=== PATIENT | female | born 1965 | race Caucasian/White ===

== ENCOUNTER 2020-01-20 11:07 | Outpatient (CLI) | payer OTHER, MEDICARE, SELFPAY ==
--- NOTE | ~2020-01-20 | CT_ITS ---
EXAMINATION: CT lung screening DATE: 01/20/2020 11:26 INDICATION: Personal history of nicotine dependence, current smoker with 38 pack year history TECHNIQUE: Computed tomography (CT) of the chest was performed without intravenous contrast. The dose -length product (DLP) was 213.69 mGy-cm. Automated exposure control and iterative reconstruction tech [employer] were employed. COMPARISON: 12/12/2018 FINDINGS: Stable bilateral pulmonary nodules are present. The largest measures 4 mm in the left upper lobe on image 60. No new pulmonary nodule is identified. Again noted is mosaic attenuation in the jacoby ng bases, likely small airways disease. The lungs are free of focal airspace opacities. There is no p leural effusion or pneumothorax. No pathologically enlarged thoracic lymph nodes are identified. The heart size is normal. Calcified coronary artery atherosclerosis is noted. There is mild thoracic spon dylosis. IMPRESSION: 1. Lung-RADS category 2: Benign appearance or behavior. Continue annual screening with noncontrast lo w-dose chest CT in 12 months. Reviewed, dictated and finalized at location A. IMPRESSION: 1. Lung-RADS category 2: Benign appearance or behavior. Continue annual screeni ng with noncontrast low-dose chest CT in 12 months.
== END 2020-01-20 11:08 | disposition home or self-care (01) ==
LOC: ANHIMG 11:16
PROVIDERS: PCP Family Medicine; Visit Provider Internal Medicine Critical Care Medicine
DX: Z12.2 Encounter for screening for malignant neoplasm of respiratory organs (principal); Z87.891 Personal history of nicotine dependence
CPT/HCPCS: G0297

== ENCOUNTER 2020-03-25 16:17 | Outpatient (CLI) | payer OTHER, MEDICARE, SELFPAY ==
--- NOTE | ~2020-03-25 | XR_ITS ---
EXAMINATION: XR chest 2V DATE: 03/25/2020 16:45 INDICATION: Pleurodynia and shortness of breath TECHNIQUE: PA and lateral views of the chest are obtained. COMPARISON: 06/21/2017 FINDINGS: The lungs are free of acute opacities. There is no pleural effusion or pneumothorax. The ca rdiomediastinal silhouette is normal. There is mild thoracic spondylosis. IMPRESSION: 1. No acute cardiopulmonary abnormality. Reviewed, dictated and finalized at location A.
== END 2020-03-25 16:18 | disposition home or self-care (01) ==
PROVIDERS: PCP Family Medicine; Visit Provider Nurse Practitioner Family
DX: R05 Cough (principal); R07.81 Pleurodynia
CPT/HCPCS: 71046

== ENCOUNTER 2020-07-09 07:41 | Outpatient (CLI) | payer OTHER, MEDICARE, SELFPAY ==
--- NOTE | ~2020-07-09 | MR_ITS ---
EXAMINATION: MR lumbar spine wo/w con DATE: 07/09/2020 08:47 INDICATION: Lumbago. Lumbar radiculopathy with recurrent low back and right leg pain and numbness. TECHNIQUE: Magnetic resonance imaging (MRI) of the lumbar spine was performed without and with 19 mL Multihance intravenous contrast. Sequences included sagittal T2-weighted FSE, sagittal T2-weighted FS FSE, sagittal T1-weighted FSE, and axial T2-weighted FSE. COMPARISON: MRI dated 12/29/2014 and radiographs dated 12/08/2014 FINDINGS: Alignment is normal. Anterior fusion at L4-L5 and posterior fusion with bilateral vertical harsh and pe dicle screw fixation from L3 through L5. Associated partial L3-L4 laminectomies. Unfused vertebral kary dy heights are normal. Normal marrow signal. Moderate disc height loss at L3-L4. Mild disc height lo ss with annular fissures and disc extrusions at L2-L3 and L5-S1. The conus medullaris terminates at L 1-L2. There is normal signal in the caudal spinal cord. No abnormally enhancing lesions identified. P ostoperative scarring in the soft tissues posterior to the mid to lower lumbar spine. Paravertebral s oft tissues are otherwise unremarkable. The following disc levels are specifically discussed: T12-L1: The disc does not extend beyond the endplate margin. There is old bilateral facet joint osteo arthritis. There is no neural foraminal stenosis. There is no central canal stenosis. L1-L2: The disc is minimally bulging. There is mild bilateral facet joint osteoarthritis. There is mi nimal left neural foraminal stenosis. There is no central canal stenosis. L2-L3: Disc is mildly bulging with superimposed annular fissure and broad-based disc extrusion which extends from foraminal zone to foraminal zone and measuring 11 mm craniocaudal and 5 mm AP at the mid sagittal plane. There is are bilateral facet joint osteoarthritis. There is hypertrophy of the ligam entum flavum. There is moderate bilateral neural foraminal stenosis. There is severe central canal s tenosis with no appreciable CSF signal surrounding the centrally punched nerve roots on the axial farzaneh ge. L3-L4: Disc is minimally bulging. The facet joints are fused. Partial laminectomy with posterior deco mpression. There is mild bilateral, left greater than right, neural foraminal stenosis. There is no c entral canal stenosis. L4-L5: The disc space is fused. The facet joints and lamina are fused. Likely prior partial L4 geovanni ctomy with resection of the ligamentum flavum. There is no greater than mild bilateral neural foramin al stenosis with determination limited by spatial distortion resulting from the pedicle screws. There is no central canal stenosis. L5-S1: Annular fissure and smaller broad-based posterior disc extrusion extending from foraminal zone to foraminal zone and measuring approximately 3 x 3 mm in craniocaudal and AP dimensions on the mid sagittal plane. There is severe bilateral facet joint osteoarthritis. There is moderate bilateral lashell ral foraminal stenosis. There is no central canal stenosis. IMPRESSION: 1. Anterior L4-L5 and instrumented posterior L3 L5 spinal fusion. 2. Interval progression of moderate to severe spondylosis in the mid to lower lumbar spine most notab le for a chronic annular fissure and enlarging disc extrusion at L2-L3 resulting in severe central ca nal stenosis. Reviewed, dictated and finalized at location A. EON'S ASSISTANT IMPRESSION: 1. Anterior L4-L5 and instrumented posterior L3 L5 spinal fusion. 2. Interval progression of moderate to severe spondylosis in the mid to lower l umbar spine most notable for a chronic annular fissure and enlarging disc extru nicola at L2-L3 resulting in severe central canal stenosis.
[2020-07-09 08:17] LABS: Estimated Glomerular Filt Rate > 60
== END 2020-07-09 07:42 ==
PROVIDERS: PCP Physician Assistant; Visit Provider Nurse Practitioner Family
DX: M54.16 Radiculopathy, lumbar region (principal); M43.16 Spondylolisthesis, lumbar region; Z98.1 Arthrodesis status
CPT/HCPCS: 72158; A9577

== ENCOUNTER 2020-08-24 11:03 | Outpatient (CLI) | payer OTHER, MEDICARE, SELFPAY | END 2020-08-24 11:04 | disposition home or self-care (01) | LOC: ANHCOVIDVC 11:03 | PROVIDERS: PCP Physician Assistant | DX: Z23 Encounter for immunization (principal) | CPT/HCPCS: 0001A; 91300 ==

== ENCOUNTER 2020-08-25 12:11 | Emergency (ER) | payer OTHER, MEDICARE, SELFPAY ==
--- NOTE | ~2020-08-25 | XR_ITS ---
EXAMINATION: XR tibia fibula RT 2V EXAM DATE: 08/25/2020 12:42 INDICATION: Right leg dog bite mid shaft. TECHNIQUE: Right tibia/fibula frontal and lateral projections obtained and reviewed. There is no genet or study for comparison. FINDINGS: Right tibial and fibular shafts unremarkable. There are no acute fractures or dislocations identified. There is no subcutaneous gas. There is a bandage obscuring soft tissues. There are no other radiopaque foreign bodies identified. IMPRESSION: 1. XR tibia fibula RT 2V exam without acute osseous findings. Reviewed, dictated and finalized at location B. ACCOUNTING ASSISTANT
[2020-08-25 12:17] VITALS: BP 137/67; PULSE 101; RESP 20; TEMP 35.9; O2SAT 98
[2020-08-25 12:52] VITALS: BP 126/53; PULSE 86; RESP 18; O2SAT 96
--- NOTE | 2020-08-25 13:15 | ED.ANIMALBIT ---
HPI - Animal Bite General Chief Complaint: Animal Bite Stated Complaint: dog bite Time Seen by Provider: 08/25/20 12:39 Source: patient Mode of arrival: ambulatory Limitations: no limitations History of Present Illness HPI narrative: Patient is a 55-year-old female complaining of a dog bite on her right leg. Patient states it was her neighbor's dog and shots are up-to-date. Patient denies any other bites or injuries. Related Data Home Medications Medication Instructions Recorded Confirmed aspirin 81 mg tablet,delayed 81 mg PO DAILY 05/29/19 06/17/20 release cetirizine 10 mg tablet 10 mg PO DAILY 05/29/19 06/17/20 simvastatin 20 mg tablet 20 mg PO DAILY 05/29/19 06/17/20 calcium carbonate 600 mg calcium 600 mg PO BID 05/30/19 06/17/20 (1,500 mg) tablet docusate sodium 250 mg capsule 250 mg PO DAILY 05/30/19 06/17/20 sennosides 8.6 mg tablet 8.6 mg PO BID 05/30/19 06/17/20 cholecalciferol (vitamin D3) 100 100 mcg PO DAILY 06/17/20 06/17/20 mcg (4,000 unit) capsule hydrochlorothiazide 12.5 mg tablet 12.5 mg PO DAILY 06/17/20 06/17/20 losartan 50 mg tablet 50 mg PO DAILY 06/17/20 06/17/20 multivitamin 1 tablet PO DAILY 06/17/20 06/17/20 Allergies Allergy/AdvReac Type Severity Reaction Status Date / Time levofloxacin Allergy Unknown Skin Verified 08/25/20 13:00 irritation metronidazole Allergy Unknown Skin Verified 08/25/20 13:00 irritation oxymetazoline Allergy Unknown unk Verified 08/25/20 13:00 Quinolones Allergy Unknown Unknown Verified 08/25/20 13:00 Bumble Bee Allergy Unknown THROAT Uncoded 06/17/20 10:11 SWELLS NFA Allergy Unknown Unknown Uncoded 06/17/20 10:11 Review of Systems Review of Systems: All systems reviewed & are unremarkable except as noted in HPI and below PMFSH Family History Family History Mother Family history of malignant neoplasm of breast in first degree relative Family history of sleep apnea Father Hypertension Asthma Family history of cardiovascular disease Family history of chronic obstructive pulmonary disease Family history of sleep apnea Grandparent Family history of cardiovascular disease Family history of Alzheimer's disease Social History Social History Social History: pt stated stop smoking 1 month ago Smoking packs per day: 0.5 Smoking cigarettes per day: 10.0 Years smoked: 30 Smoking pack-years: 15.00 Smoking status: Current every day smoker Tobacco type: cigarettes Second hand tobacco smoke exposure: No Alcohol intake: current Gender identity (if verbalized by the patient): Female Exam Const: General: no acute distress and alert Orientation/consciousness: patient oriented x3 HENMT: Head: normal to inspection Neck: Neck: normal visual inspection Resp: Effort & Inspection: normal respiratory effort Extrem: Other: 2 puncture wounds on the right calf measuring 2 x 1 cm and 1 x 1 cm, abrasions right calf. Neurovascular is intact. Course Vital Signs Vital signs: Vital Signs Temperature 35.9 C L 08/25/20 12:17 Pulse Rate 101 H 08/25/20 12:17 Respiratory Rate 20 08/25/20 12:17 Blood Pressure 137/67 08/25/20 12:17 Pulse Oximetry 98 08/25/20 12:17 Temperature 35.9 C L 08/25/20 12:17 Pulse Rate 86 08/25/20 12:52 Respiratory Rate 18 08/25/20 12:52 Blood Pressure 126/53 L 08/25/20 12:52 Pulse Oximetry 96 08/25/20 12:52 Discharge Plan Discharge Clinical Impression: Dog bite of calf Qualifiers: Encounter type: initial encounter Laterality: right Qualified Code(s): S81.851A - Open bite, right lower leg, initial encounter Patient Disposition: Home, Self-Care Condition: Stable Instructions: Antibiotic Form, Animal Bite (ED) Prescriptions: New amoxicillin-pot clavulanate [Augmentin] 875-125 mg tablet 1 tablet PO Q12H Qty: 14 RF: 0 No Action f
[2020-08-25] MEDS: TETANUS,DIPHTHERIA,AC PERTUSSIS ADULT (0.5 ML) BOOSTRIX IM (13:38)
[2020-08-25] MEDS: KETOROLAC 30 MG/ML VIAL (*BKC) IM (13:39)
[2020-08-25] MEDS: HYDROcodone/acetaminophen (*CRX) 5-325 MG TABLET 1 TAB PO (13:39)
[2020-08-25 13:51] VITALS: BP 135/81; PULSE 87; RESP 18; O2SAT 95
== END 2020-08-25 14:03 | disposition home or self-care (01) ==
PROVIDERS: Emergency Provider Emergency Medicine; PCP Family Medicine
DX: S81.851A Open bite, right lower leg, initial encounter (principal); Z23 Encounter for immunization; Z79.82 Long term (current) use of aspirin; Z87.891 Personal history of nicotine dependence; W54.0XXA Bitten by dog, initial encounter
CPT/HCPCS: 73590; 90471; 90715; 96372; 99283; A9270; J1885

== ENCOUNTER 2020-09-01 15:24 | Emergency (ER) | payer OTHER, MEDICARE, SELFPAY ==
[2020-09-01 15:34] VITALS: BP 142/66; PULSE 82; RESP 18; TEMP 36.2; O2SAT 98
[2020-09-01 17:45] LABS: Basophils Percent Auto 0.4 % (0.2-1.2); Eosinophils Absolute Auto 0.1 K/mm3 (0-0.3); Eosinophils Percent Auto 1.3 % (0-4.4); Hematocrit 33.8 % (37.0-47.0); Hemoglobin 10.3 g/dL (12.0-15.0); Immature Granulocyte Absolute 0.06 K/mm3 (0.00-0.031); Immature Granulocyte Percent A 0.6 % (0-0.5); Lymphocytes Absolute Auto 2.51 K/mm3 (0.9-3.2); Lymphocytes Percent Auto 25.7 % (18.3-44.2); Mean Corpuscular HGB Conc 30.5 g/dl (32-36); Mean Corpuscular Hemoglobin 25.5 pg (26-34); Mean Corpuscular Volume 83.7 fl (80-100); Mean Platelet Volume 10.4 fl (7.4-10.4); Monocytes Absolute Auto 0.6 K/mm3 (0.1-0.6); Monocytes Percent Auto 5.7 % (2.6-8.5); Neutrophils Absolute Auto 6.5 K/mm3 (1.3-6.7); Neutrophils Percent Auto 66.3 % (45.5-73.1); Platelet Count Result 264 k/mm3 (150-375); Red Blood Count 4.04 M/mm3 (4.2-5.4); Red Cell Distribution Width 15.2 % (11.5-14.5); White Blood Count 9.8 K/mm3 (4.5-10.0)
[2020-09-01] MEDS: CLINDAMYCIN 600 MG/NS 50 ML 600 MG/50 ML PIGGYBACK 100 MG IVPB (17:49)
[2020-09-01] MEDS: KETOROLAC 15 MG/ML VIAL (*BKC) IV PUSH (17:49)
--- NOTE | 2020-09-01 19:18 | ED.ANIMALBIT ---
HPI - Animal Bite General Chief Complaint: Animal Bite Stated Complaint: infected dog bite Time Seen by Provider: 09/01/20 16:53 Source: patient Mode of arrival: ambulatory Limitations: no limitations History of Present Illness HPI narrative: Patient presents for reevaluation of dog bite to her right calf that she sustained on August 25. Patient was started on Augmentin at that time. Patient followed up with her primary care on August 28 and had some erythema to the area so she was put on Bactrim and prescribed Bactroban. Patient states that her redness and swelling has increased so her primary care told her to come to the emergency department. Patient has not had fever, chills or vomiting. Patient denies purulent drainage from the wound. Patient feels that the erythema is getting worse. Patient does not have diabetes. Patient denies autoimmune diseases. Related Data Home Medications Medication Instructions Recorded Confirmed aspirin 81 mg tablet,delayed 81 mg PO DAILY 05/29/19 09/01/20 release cetirizine 10 mg tablet 10 mg PO DAILY 05/29/19 09/01/20 simvastatin 20 mg tablet 20 mg PO DAILY 05/29/19 09/01/20 calcium carbonate 600 mg calcium 600 mg PO BID 05/30/19 09/01/20 (1,500 mg) tablet docusate sodium 250 mg capsule 250 mg PO DAILY 05/30/19 09/01/20 sennosides 8.6 mg tablet 8.6 mg PO BID 05/30/19 09/01/20 cholecalciferol (vitamin D3) 100 100 mcg PO DAILY 06/17/20 09/01/20 mcg (4,000 unit) capsule hydrochlorothiazide 12.5 mg tablet 12.5 mg PO DAILY 06/17/20 09/01/20 losartan 50 mg tablet 50 mg PO DAILY 06/17/20 09/01/20 multivitamin 1 tablet PO DAILY 06/17/20 09/01/20 Lactobacillus rhamnosus GG 10 1 cap PO DAILY 08/28/20 08/28/20 billion cell capsule pregabalin 75 mg capsule 75 mg PO BID 08/28/20 09/01/20 Allergies Allergy/AdvReac Type Severity Reaction Status Date / Time levofloxacin Allergy Unknown Skin Verified 09/01/20 16:54 irritation metronidazole Allergy Unknown Skin Verified 09/01/20 16:54 irritation oxymetazoline Allergy Unknown unk Verified 09/01/20 16:54 Quinolones Allergy Unknown Unknown Verified 09/01/20 16:54 Bumble Bee Allergy Unknown THROAT Uncoded 08/28/20 09:15 SWELLS NFA Allergy Unknown Unknown Uncoded 08/28/20 09:15 Review of Systems Review of Systems: Narrative: CONSTITUTIONAL: Denies fever, chills, or sweats. EYES: Denies visual changes, redness, or discharge. ENT: Denies rhinorrhea, congestion, sore throat, or otalgia. CARDIOVASCULAR: Denies chest pain, palpitations, or edema. RESPIRATORY: Denies cough or dyspnea. GASTROINTESTINAL: Denies abdominal pain, nausea, vomiting, or diarrhea. GENITOURINARY: Denies dysuria or hematuria. SKIN: Reports dog bite right calf denies rash or itching. MUSCULOSKELETAL: Denies back pain, joint pain, or myalgia. NEUROLOGIC: Denies headache, numbness, dizziness, or weakness. PSYCHIATRIC: Denies anxiety or depression. [facility] Past Medical History Medical History Acute renal failure Allergies Benign hypertension COPD exacerbation CVA (cerebral vascular accident) Fatigue Hyperlipidemia LDL goal <70 Low back pain with right-sided sciatica Lung disease Papular rash Pustular rash Surgical History Surgical History History of appendectomy History of cholecystectomy History of hernia repair History of spinal fusion History of tubal ligation Family History Family History Mother Family history of malignant neoplasm of breast in first degree relative Family history of sleep apnea Father Hypertension Asthma Family history of cardiovascular disease Family history of chronic obstructive pulmonary disease Family history of sleep apnea Grandparent Family history of cardiovascular disease Family history of Alzheimer's disease Social History Social History (Re
[2020-09-01 19:30] VITALS: BP 139/78; PULSE 79; RESP 18; O2SAT 97
== END 2020-09-01 19:45 | disposition home or self-care (01) ==
PROVIDERS: Physician Assistant; Emergency Provider Emergency Medicine; PCP Physician Assistant
DX: L03.115 Cellulitis of right lower limb (principal); S81.851A Open bite, right lower leg, initial encounter; W54.0XXA Bitten by dog, initial encounter; Z79.82 Long term (current) use of aspirin; I10 Essential (primary) hypertension; J44.9 Chronic obstructive pulmonary disease, unspecified; Z86.73 Personal history of transient ischemic attack (TIA), and cerebral infarction without residual deficits; E78.5 Hyperlipidemia, unspecified; J98.4 Other disorders of lung; Z98.1 Arthrodesis status
CPT/HCPCS: 36415; 80053; 85025; 87040; 96365; 96375; 99284; J1885

== ENCOUNTER 2020-09-04 15:53 | Outpatient (CLI) | payer OTHER, MEDICARE, SELFPAY ==
--- NOTE | ~2020-09-04 | XR_ITS ---
EXAMINATION: XR chest 2V DATE: 09/04/2020 16:32 INDICATION: Dyspnea TECHNIQUE: PA and lateral views of the chest were obtained. COMPARISON: Chest radiograph dated 03/25/2020 FINDINGS: The lungs remain clear with no focal airspace opacities, pulmonary edema, pleural effusion or pneumot horax. The cardiomediastinal silhouette is normal. Cholecystectomy clips in right upper quadrant. Vis ualized bones and soft tissues are unremarkable. IMPRESSION: 1. No acute cardiopulmonary disease. Reviewed, dictated and finalized at location B.
--- NOTE | ~2020-09-04 | US_ITS ---
US venous doppler LE RT DATE: 09/04/2020 16:19 INDICATION: Right leg pain. Dog bite. TECHNIQUE: Real-time imaging and Doppler analysis of the veins of the right lower extremity COMPARISON: None FINDINGS: The greater saphenous vein is patent. There is spontaneous and phasic flow and normal augme ntation and color flow signal and normal compression of the deep veins of the right lower extremity. IMPRESSION: No evidence of deep venous thrombosis of right lower extremity Reviewed, dictated and finalized at Location A. Reviewed, dictated and finalized at location A.
== END 2020-09-04 15:54 | disposition home or self-care (01) ==
PROVIDERS: PCP Physician Assistant; Visit Provider Family Medicine
DX: R06.00 Dyspnea, unspecified (principal); M79.604 Pain in right leg; M79.89 Other specified soft tissue disorders
CPT/HCPCS: 71046; 93971

== ENCOUNTER 2020-09-14 11:06 | Outpatient (CLI) | payer OTHER, MEDICARE, SELFPAY | END 2020-09-14 11:07 | disposition home or self-care (01) | LOC: ANHCOVIDVC 11:06 | PROVIDERS: PCP Physician Assistant | DX: Z23 Encounter for immunization (principal) | CPT/HCPCS: 0002A; 91300 ==

== ENCOUNTER 2020-10-08 13:46 | Outpatient (CLI) | payer OTHER, MEDICARE, SELFPAY ==
--- NOTE | 2020-10-08 13:45 | ECG_ITS ---
Measurements Intervals [place] Rate: 64 P: 45 W[place]: 171 QRS: 58 QRSD: 100 T: 34 QT: 413 QTc: 428 Interpretive Statements SINUS RHYTHM NORMAL ECG Electronically Signed On 10-08-2020 14:09:27 CDT by Les Santos D.O.
[2020-10-08 14:42] LABS: Anion Gap 5 mmol/L (8-16); Blood Urea Nitrogen 10 mg/dL (7-17); Carbon Dioxide 31 mmol/L (22-30); Chloride 102 mmol/L (98-107); Estimated Glomerular Filt Rate 57; Glucose 123 mg/dL (65-105); Potassium 3.8 mmol/L (3.4-5.0); Sodium 138 mmol/L (137-145)
== END 2020-10-08 13:47 | disposition home or self-care (01) ==
LOC: ANHSURGERY 13:52
PROVIDERS: Anesthesiology; PCP Physician Assistant; Visit Provider Surgery
DX: Z01.812 Encounter for preprocedural laboratory examination (principal); I10 Essential (primary) hypertension; Z79.899 Other long term (current) drug therapy
CPT/HCPCS: 36415; 80048; 93005

== ENCOUNTER → 2020-10-10 06:58 | Outpatient (CLI) | payer OTHER, MEDICARE, SELFPAY ==
[2020-10-10 20:54] LABS: SARS-CoV-2 RNA PCR Negative
== END ==
PROVIDERS: PCP Physician Assistant; Visit Provider Surgery
DX: Z01.812 Encounter for preprocedural laboratory examination (principal); Z20.822 Contact with and (suspected) exposure to COVID-19
CPT/HCPCS: C9803; U0003; U0005

== ENCOUNTER 2020-10-14 00:54 | Day surgery (SDC) | payer OTHER, MEDICARE, SELFPAY ==
[2020-10-06 14:37] VITALS: BMI 39.0
--- NOTE | 2020-10-08 11:02 | PC.NURSE ---
No health history or medication changes since time of previous interview. New pre-op instructions discussed with pt. Pt denies any questions at this time.
--- NOTE | 2020-10-11 12:17 | P.PNWOUND_ITS ---
Wound Care Note Date/Time: 10/11/20 12:17 History: Bitten by a dog on right lower leg. Two wounds not healing. Patient is a smoker. Wound history: Initially seen by wound nurses 09/24/2020. Mupirocin and Santyl were tried as well as Tubigauze. No improvement has been noted. Wound approximation: No Wound width: 2 cm Wound length: 1 cm Wound depth: 1.1 cm Drainage: serosanguineous Surrounding tissue appearance: edematous Tunnelin.9 cm between the 2 open wounds Percentage granulation tissue: 0, nearly all is slough Treatment/Procedures: mupirocin and santyl dressing changes to continue. Tubigrip for edema control. Plan to take patient to the OR for debridement of the overlying tissue to expose the underlying tunneling and debride the slough. Dressings: As above. Assessment and Plan Assessment and plan (1) Dog bite: Code(s): W54.0XXA - Bitten by dog, initial encounter Status: Chronic Assessment and Plan: Two open wounds right lower leg that are not healing and have obvious tunneling between the 2. Both are filled with and really no granulation tissue. They are very tender. We will need to go to the operating room for excisional debridement of the skin and subcutaneous of the overlying tunnel. Some of the slough will be debrided as well. I explained this to the patient and her were answered. They agreed to go ahead . This will be an outpatient procedure. (2) Pain and swelling of right lower extremity: Code(s): M79.604 - Pain in right leg; M79.89 - Other specified soft tissue disorders Status: Chronic Assessment and Plan: associated with dog bite. Elevate and continue to use tubigrip over dressing. (3) Tobacco abuse: Code(s): Z72.0 - Tobacco use Status: Chronic Assessment and Plan: Explained to the patient that her wound healing. Advised her to quit smoking. (4) COPD with asthma: Code(s): J44.9 - Chronic obstructive pulmonary disease, unspecified Status: Chronic (5) GUILLERMINA on CPAP: Code(s): G47.33 - Obstructive sleep apnea (adult) (pediatric); Z99.89 - Dependence on other enabling machines and devices Status: Acute (6) Primary hypertension: Code(s): I10 - Essential (primary) hypertension Status: Chronic Review of Systems Review of Systems: All systems reviewed & are unremarkable except as noted in HPI and below Constitutional: Constitutional: Denies headache(s) ENT: Denies headache(s) Cardiovascular: Cardiovascular: Denies chest pain and Denies dyspnea Respiratory: Respiratory: Denies cough and Denies dyspnea Gastrointestinal: Gastrointestinal: Denies bloating, Denies constipation and Denies nausea Neurologic: Denies confusion and Denies headache(s) Psychiatric: Psychiatric: Denies confusion Exam 2 Const: General: comfortable, no acute distress, alert and awake Skin: Lesions: no lesions Rashes: no rashes Wounds: wounds noted ( See extremity exam below) Extrem: General: no calf tenderness, no cyanosis, edema and pedal edema Right lower extremity: lower leg Details: penetrating wound ( to circular dog bite wounds with slough fill and tunneling) Psych: Affect: normal affect Thought process: Normal thought process present Insight: Good insight present (Psych)
--- NOTE | 2020-10-13 14:49 | WPDANESEPPF ---
Anes - Initial Pre Proc Eval Procedure: Operation Date: 10/14/20 13:00 Proposed Procedures p Excisional Debridement Skin And Subcutaneous Tissue Right Lower Leg - Kirby Parsons MD Date/Time: 10/13/20 14:49 Surgeon: Kirby Parsons MD Pre Op Diagnosis: necrotic tissue from dog bite right lower leg Patient Data Age: 55 Gender: F Height: 1.6 m Weight: 100 kg Allergies Allergy/AdvReac Type Severity Reaction Status Date / Time levofloxacin Allergy Severe Hives Verified 10/14/20 10:21 metronidazole Allergy Severe Hives Verified 10/14/20 10:21 Quinolones Allergy Severe Hives Verified 10/14/20 10:21 oxymetazoline Allergy Unknown Unknown Verified 10/14/20 10:21 Bumble Bee Allergy Unknown THROAT Uncoded 10/06/20 14:29 SWELLS Home Medications Medication Instructions Recorded Confirmed Type aspirin 81 mg tablet,delayed 81 mg PO DAILY 05/29/19 10/14/20 History release cetirizine 10 mg tablet 10 mg PO DAILY 05/29/19 10/14/20 History simvastatin 20 mg tablet 20 mg PO DAILY 05/29/19 10/06/20 History calcium carbonate 600 mg calcium 600 mg PO BID 05/30/19 10/14/20 History (1,500 mg) tablet docusate sodium 250 mg capsule 250 mg PO BID 05/30/19 10/06/20 History sennosides 8.6 mg tablet 8.6 mg PO BID 05/30/19 10/06/20 History montelukast 10 mg tablet See Rx Instructions .ROUTE 11/08/19 10/06/20 Rx .COMPLEX 90 Days #90 tablet budesonide-formoterol HFA 80 See Rx Instructions .ROUTE 06/03/20 10/14/20 Rx mcg-4.5 mcg/actuation aerosol .COMPLEX #30.6 inhaler inhaler cholecalciferol (vitamin D3) 100 100 mcg PO DAILY 06/17/20 10/14/20 History mcg (4,000 unit) capsule hydrochlorothiazide 12.5 mg tablet 12.5 mg PO DAILY 06/17/20 10/06/20 History hydrocodone 5 mg-acetaminophen 325 1 tablet PO Q6H PRN #20 tablet 06/17/20 10/06/20 Rx mg tablet losartan 50 mg tablet 50 mg PO DAILY 06/17/20 10/06/20 History multivitamin 1 tablet PO DAILY 06/17/20 10/06/20 History omeprazole 20 mg tablet,delayed 20 mg PO BID #180 tablet 06/22/20 10/06/20 Rx release sertraline 100 mg tablet 150 mg PO DAILY #135 tablet 07/28/20 10/14/20 Rx albuterol sulfate 90 mcg/actuation See Rx Instructions .ROUTE 08/10/20 10/14/20 Rx aerosol inhaler .COMPLEX #18 inhaler bupropion HCl 150 mg 24 hr tablet, See Rx Instructions .ROUTE 08/12/20 10/14/20 Rx extended release .COMPLEX #90 tablet Lactobacillus rhamnosus GG 10 1 cap PO DAILY 08/28/20 10/06/20 History billion cell capsule pregabalin 75 mg capsule 75 mg PO BID 08/28/20 10/14/20 History mupirocin 2 % topical ointment 1 applic TOPICAL BID #15 g 09/04/20 10/06/20 Rx collagenase clostridium histo. 1 applic TOPICAL DAILY 10/06/20 10/06/20 History [Santyl] Patient hx anesthesia problems: none Family hx anesthesia problems: none PMFSH Past Medical History Medical History (Updated 10/13/20 @ 14:50 by Art Arroyo MD) Acute renal failure Allergies Anxiety and depression Benign hypertension COPD exacerbation COPD with asthma CVA (cerebral vascular accident) Fatigue Hyperlipidemia LDL goal <70 Low back pain with right-sided sciatica Lung disease Mixed hyperlipidemia GUILLERMINA on CPAP Papular rash Primary hypertension Pustular rash Tobacco abuse Surgical History Surgical History (Updated 10/13/20 @ 14:50 by Art Arroyo MD) History of appendectomy History of cholecystectomy History of hernia repair History of lumbar fusion History of spinal fusion History of tubal ligation Family History Family History Mother Family history of malignant neoplasm of breast in first degree relative Family history of sleep apnea Father Hypertension Asthma Family history of cardiovascular disease Family history of chronic obstructive pulmonary disease Family history of sleep apnea Grandparent Family history of cardiovascular disease Family history of Alzheimer's disease Social History Social History (R
--- NOTE | 2020-10-13 18:00 | PM.SD2 ---
Same Day Admit/Disch: HPI History of Present Illness Chief complaint: necrotic tissue from dog bite right lower leg Narrative: Rosetta Llanos is a 55 year old female whom I saw in the wound clinic about 1 week ago. She sustained a dog bite to the right lower leg. This wound has not been healing despite being cared for by the wound nurses and [facility]. I saw her in the wound clinic and there is significant undermining with 100% slough of the wound. It basically tunnels in the anterolateral right calf. She is taken to surgery now for skin and subcutaneous excisional debridement to promote wound healing. [facility] Past Medical History Medical History (Updated 10/13/20 @ 14:50 by Art Arroyo MD) Acute renal failure Allergies Anxiety and depression Benign hypertension COPD exacerbation COPD with asthma CVA (cerebral vascular accident) Fatigue Hyperlipidemia LDL goal <70 Low back pain with right-sided sciatica Lung disease Mixed hyperlipidemia GUILLERMINA on CPAP Papular rash Primary hypertension Pustular rash Tobacco abuse Surgical History Surgical History (Updated 10/13/20 @ 14:50 by Art Arroyo MD) History of appendectomy History of cholecystectomy History of hernia repair History of lumbar fusion History of spinal fusion History of tubal ligation Family History Family History Mother Family history of malignant neoplasm of breast in first degree relative Family history of sleep apnea Father Hypertension Asthma Family history of cardiovascular disease Family history of chronic obstructive pulmonary disease Family history of sleep apnea Grandparent Family history of cardiovascular disease Family history of Alzheimer's disease Social History Social History Social History: pt stated stop smoking 1 month ago Smoking packs per day: 0.5 Smoking cigarettes per day: 10.0 Years smoked: 30 Smoking pack-years: 15.00 Smoking status: Current every day smoker Tobacco type: cigarettes Second hand tobacco smoke exposure: No Alcohol intake: current Alcohol use details: RARE Substance use: never Substance use type: does not use Living arrangements: with family Gender identity (if verbalized by the patient): Female Spiritual care concerns: No Same Day Admit/Disch: Med Pre-admit Medications Home Medications Medication Instructions Recorded Confirmed Type aspirin 81 mg tablet,delayed 81 mg PO DAILY 05/29/19 10/14/20 History release cetirizine 10 mg tablet 10 mg PO DAILY 05/29/19 10/14/20 History simvastatin 20 mg tablet 20 mg PO DAILY 05/29/19 10/06/20 History calcium carbonate 600 mg calcium 600 mg PO BID 05/30/19 10/14/20 History (1,500 mg) tablet docusate sodium 250 mg capsule 250 mg PO BID 05/30/19 10/06/20 History sennosides 8.6 mg tablet 8.6 mg PO BID 05/30/19 10/06/20 History montelukast 10 mg tablet See Rx Instructions .ROUTE 11/08/19 10/06/20 Rx .COMPLEX 90 Days #90 tablet budesonide-formoterol HFA 80 See Rx Instructions .ROUTE 06/03/20 10/14/20 Rx mcg-4.5 mcg/actuation aerosol .COMPLEX #30.6 inhaler inhaler cholecalciferol (vitamin D3) 100 100 mcg PO DAILY 06/17/20 10/14/20 History mcg (4,000 unit) capsule hydrochlorothiazide 12.5 mg tablet 12.5 mg PO DAILY 06/17/20 10/06/20 History hydrocodone 5 mg-acetaminophen 325 1 tablet PO Q6H PRN #20 tablet 06/17/20 10/06/20 Rx mg tablet losartan 50 mg tablet 50 mg PO DAILY 06/17/20 10/06/20 History multivitamin 1 tablet PO DAILY 06/17/20 10/06/20 History omeprazole 20 mg tablet,delayed 20 mg PO BID #180 tablet 06/22/20 10/06/20 Rx release sertraline 100 mg tablet 150 mg PO DAILY #135 tablet 07/28/20 10/14/20 Rx albuterol sulfate 90 mcg/actuation See Rx Instructions .ROUTE 08/10/20 10/14/20 Rx aerosol inhaler .COMPLEX #18 inhaler bupropion HCl 150 mg 24 hr tablet, See
[2020-10-14] VITALS (12 sets, daily range): BP systolic 85–114; BP diastolic 37–59; PULSE 62–80; RESP 12–22; TEMP 36.2–36.3; O2SAT 90–100
--- NOTE | 2020-10-14 07:25 | WPDHPUPDATE1 ---
History and Physical Update Update Date/Time: 10/14/20 07:25 History and Physical has been reviewed, including an updated exam of the patient. There are NO changes in the patient's condition. Risks, benefits, and alternatives have been discussed and questions answered. Patient agrees to proceed with procedure.
[2020-10-14] MEDS: LACTATED RINGERS 1,000 ML 30 ML IV CONT ×2 (10:39→12:30)
[2020-10-14] MEDS: ceFAZolin 2 GM/D5W 50 ML 2 GM/50 ML BAG IVPB (10:59)
[2020-10-14] MEDS: BUPIVACAINE/EPINEPHRINE 0.5% 30 ML VIAL 20 ML INFILTRATE (11:30)
--- NOTE | 2020-10-14 11:31 | PM.PROC ---
Procedure Note - Detailed Date of procedure: 10/14/20 Pre-op diagnosis: necrotic tissue from dog bite right lower leg Necrotic wound right lower leg from dog bite Post-op diagnosis: same Procedure performed: Excisional debridement skin and subcutaneous-6 cm x 2 cm x 1.5 cm Description of procedure: The patient was taken to surgery and induced into general anesthesia per LMA. The right leg was prepped and draped. Local anesthetic was infiltrated all around the 2 openings from the previous dog bite. I was easily able to place a curved clamp from 1 opening under the skin and out the other opening. With the clamp in place, I excised the overlying skin and subcutaneous. No foreign body or abscess was noted. There was a lot of inflammatory tissue a in the wound. A went ahead and excised much of the inflammatory tissue down to healthy fat. The resultant wound was 6 x 2 x 1.5 cm deep. Cautery was used for hemostasis. The wound was packed with 2 in iodoform Nu Gauze. A bulky fluff dressing was placed. The leg was wrapped with Kerlix followed by 4 in Aydin wrap. The patient was taken to recovery in good condition. Sponge and needle counts were correct x2. Anesthesia: GLMA and local (0.5% Marcaine with epinephrine) Surgeon: Kirby Parsons MD Filament Coil Winder: Radha WRIGHT Estimated blood loss (mL): 5 Drains: No Packing: Yes (2 in iodoform Nu Gauze) Pathology: none sent Complications: None Condition: stable Disposition: PACU Findings: Necrotic skin and subcutaneous with slough and undermined tunnel right lower leg from dog bite complications.
[2020-10-14] MEDS: fentaNYL CITRATE INJ (*CRX) 100 MCG/2 ML VIAL 25 MCG IV PUSH ×2 (11:45→12:35)
[2020-10-14] MEDS: ONDANSETRON INJ 4 MG/2 ML VIAL IV PUSH (11:54)
--- NOTE | 2020-10-14 12:39 | SUR.PHASEI ---
1205: PT RATES PAIN @ 8. FLACC 0,.
--- NOTE | 2020-10-14 12:39 | SUR.PHASEI ---
1205: PT PAIN LEVEL 8. FLACC 0. DOZES OCCAS. O2 SAT 80 ON RA WHILE DOZING. O2 3LPM APPLIED.
== END 2020-10-14 14:35 | disposition home or self-care (01) ==
PROVIDERS: PCP Physician Assistant; Visit Provider Surgery
PROC: (CPT 11042; principal; 2020-10-14 13:00)
DX: S81.851D Open bite, right lower leg, subsequent encounter (principal); I10 Essential (primary) hypertension; J44.9 Chronic obstructive pulmonary disease, unspecified; E78.2 Mixed hyperlipidemia; G47.33 Obstructive sleep apnea (adult) (pediatric); F41.8 Other specified anxiety disorders; E66.9 Obesity, unspecified; Z68.39 Body mass index [BMI] 39.0-39.9, adult; F17.210 Nicotine dependence, cigarettes, uncomplicated; Z86.73 Personal history of transient ischemic attack (TIA), and cerebral infarction without residual deficits; W54.0XXD Bitten by dog, subsequent encounter
CPT/HCPCS: 11042; 36415; 80048; 93005; C9803; J0690; J1170; J2250; J2370; J2405; J2704; J3010; J7120; U0003; U0005

== ENCOUNTER 2020-12-07 07:32 | Outpatient (RCR) | payer OTHER, MEDICARE, SELFPAY ==
[2020-09-10 13:30] VITALS: BMI 39.6
--- NOTE | 2020-10-22 21:02 | P.PNWOUND_ITS ---
Wound Care Note Date/Time: 10/22/20 21:02 History: dog bite right leg with tunneling and necrotic tissue. Wound history: Debridement in OR 10/14/20. On home wound vac therapy. Wound approximation: No Wound width: 5cm Wound length: 1.5cm Wound depth: 1.8cm Drainage: serosanguinous Surrounding tissue appearance: healthy Tunneling: none Percentage granulation tissue: 90 Treatment/Procedures: wound vac change Dressings: wound vac Assessment and Plan Assessment and plan (1) Wound of right leg: Code(s): S81.801A - Unspecified open wound, right lower leg, initial encounter Status: Chronic Assessment and Plan: continue wound vac therapy. Recheck in wound clinic in 2 weeks. (2) Dog bite: Code(s): W54.0XXA - Bitten by dog, initial encounter Status: Chronic Assessment and Plan: Original injury, debrided in OR. (3) Tobacco abuse: Code(s): Z72.0 - Tobacco use Status: Chronic Review of Systems 2 Review of Systems: All systems reviewed & are unremarkable except as noted in HPI and below Constitutional: Constitutional: Denies chills, Denies fever(s) and Denies headache(s) Exam Const: General: comfortable and no acute distress; No confusion Orientation/consciousness: patient oriented x3 and No confusion Extrem: General: no calf tenderness and no edema Right lower extremity: lower leg Details: tenderness, non-pitting edema Details: 1+ and other (wound smaller, healing); no erythema and no pitting edema Psych: Affect: normal affect Insight: Good insight present (Psych) Judgement: Good judgement present (Psych)
--- NOTE | 2020-11-05 17:38 | WPDWOUNDNOTE ---
Wound Care Note Date/Time: 11/05/20 17:38 History: Patient suffered dog bite to right lower extremity with tunneling and necrotic tissue. Wound history: She underwent extensive debridement in the operating room on October 14, 2020. She continues now with wound VAC therapy and is seen in the wound clinic. Wound approximation: No Wound width: 4.2 cm Wound length: 1.3 cm Wound depth: 1.5 cm Drainage: serosanguineous Surrounding tissue appearance: dry healthy Tunneling: none Percentage granulation tissue: 100% Treatment/Procedures: none needed Dressings: continue wound VAC therapy. Recheck in 3 weeks. Assessment and Plan Assessment and plan (1) Wound of right leg: Code(s): S81.801A - Unspecified open wound, right lower leg, initial encounter Status: Chronic Assessment and Plan: infection and necrotic tissue cleared. Wound is healing well now. Continue wound VAC therapy as well as Tubigrip to minimize edema. Recheck again in 3 weeks. (2) Dog bite: Code(s): W54.0XXA - Bitten by dog, initial encounter Status: Chronic Review of Systems Review of Systems: All systems reviewed & are unremarkable except as noted in HPI and below ( Wound note and those items noted below) Constitutional: Constitutional: Denies body ache(s), Denies chills and Denies fever(s) Exam Extrem: Right lower extremity: lower leg ( pink granulating healthy wound. Notably smaller.) Details: non-pitting edema ( Less edema)
--- NOTE | 2020-11-23 13:39 | P.PNWOUND_ITS ---
Wound Care Note Date/Time: 11/23/20 13:39 History: Dog bite right lower leg. Patient is smoker. Was on a wound VAC but stopped for a break on 11/17/2020. Also has some issues with lower extremity edema. Wound history: Extensive debridement of necrotic tissue in the operating room. Was using wound VAC but this was discontinued on 11/17 for a break. She has been using mupirocin and Aquacel Silver rope to wound daily. Very slow healing. Wound approximation: No Wound width: 3.7 cm Wound length: 0.5 cm Wound depth: 0.6 cm Drainage: pink, serosanguineous Surrounding tissue appearance: dry Tunneling: none Percentage granulation tissue: 100% Treatment/Procedures: bio film removed at visit. Still has 2+ edema of the foot. Dressings: Continue mupirocin but also add Barb collagen matrix to the wound bed to promote new tissue growth. Continue Aquacel Silver rope to the wound bed cover with gauze and ABD. Tubigrip for better control of edema. Encouraged am bulation. Assessment and Plan Assessment and plan (1) Wound of right leg: Code(s): S81.801A - Unspecified open wound, right lower leg, initial encounter Status: Chronic Assessment and Plan: healing slowly. had Barb collagen matrix to mupirocin and silver rope. Also start using Tubigrip. Will discontinue wound VAC today. Recheck in wound clinic in 2 weeks. (2) Tobacco abuse: Code(s): Z72.0 - Tobacco use Status: Chronic Review of Systems Review of Systems: All systems reviewed & are unremarkable except as noted in HPI and below ( Wound care note) Constitutional: Constitutional: Denies body ache(s), Denies chills and Denies fever(s) Musculoskeletal: Musculoskeletal: Reports back pain ( has been limiting her ability to ambulate) Exam Extrem: Right lower extremity: edema and lower leg ( wound is slightly smaller and closing more craniocaudad than by width) Details: tenderness, non-pitting edema and other ( wound clean, granulating); no erythema
--- NOTE | 2020-12-09 16:46 | WPDWOUNDNOTE ---
Wound Care Note Date/Time: 12/09/20 16:46 History: Dog bite to right lower leg. Debrided in surgery. Wound history: Wound VAC was placed but discontinued on November 23. Wound approximation: No Wound width: 3 cm Wound length: 0.2 cm Wound depth: 0.3 cm Drainage: pink serosanguineous Surrounding tissue appearance: dry, mild edema Tunneling: no Percentage granulation tissue: 100% Treatment/Procedures: none Dressings: continue mupirocin with Barb collagen matrix. Mepilex transfer and Tubigrip to help control lower extremity edema. Patient continues to follow in the wound clinic twice a week. Wound is much smaller and hopefully will be closed soon. I will see her again in 3 weeks. Assessment and Plan Assessment and plan (1) Dog bite: Code(s): W54.0XXA - Bitten by dog, initial encounter Status: Chronic Assessment and Plan: continue wound care as described. Recheck her in 3 weeks. She will continue to follow in the wound clinic twice weekly. (2) Wound of right leg: Code(s): S81.801A - Unspecified open wound, right lower leg, initial encounter Status: Chronic (3) Tobacco abuse: Code(s): Z72.0 - Tobacco use Status: Chronic Review of Systems Review of Systems: All systems reviewed & are unremarkable except as noted in HPI and below ( Wound care note) Exam Extrem: Right lower extremity: lower leg ( wound much smaller, granulating, still a thin open area across the leg) Details: pitting edema Details: 1+
== END 2020-12-09 23:59 | disposition home or self-care (01) ==
LOC: ANHWOC 07:32
PROVIDERS: PCP Physician Assistant; Referring Provider Family Medicine; Visit Provider Surgery
DX: L03.90 Cellulitis, unspecified (principal); W54.0XXA Bitten by dog, initial encounter
CPT/HCPCS: 97605; 99212; 99213; A9270; G0463

== ENCOUNTER 2020-12-24 07:15 | Outpatient (RCR) | payer OTHER, MEDICARE, SELFPAY ==
[2020-12-10 00:03] VITALS: BMI 39.6
--- NOTE | 2020-12-14 09:47 | PCWOUND ---
WOCN NOTE Patient called to cancel appointment for today and will keep appointment for . patient reports she is doing well.
== END 2021-02-09 12:19 | disposition home or self-care (01) ==
LOC: ANHWOC 07:15
PROVIDERS: PCP Physician Assistant; Referring Provider Family Medicine; Visit Provider Surgery
DX: L03.90 Cellulitis, unspecified (principal); W54.0XXA Bitten by dog, initial encounter
CPT/HCPCS: 99212; A9270; G0463

== ENCOUNTER 2021-04-20 16:30 | Emergency (ER) | payer OTHER, MEDICARE, SELFPAY ==
[2021-04-20 16:49] VITALS: BP 116/54; PULSE 86; RESP 18; TEMP 37.4; O2SAT 99
--- NOTE | 2021-04-20 17:29 | ED.GENADULT ---
HPI - General Adult General Chief complaint: Unspecified Stated complaint: cloudy urine,frequently urinating,cough,sinus Time Seen by Provider: 04/20/21 17:17 Source: patient and RN notes reviewed Mode of arrival: ambulatory Limitations: no limitations History of Present Illness HPI narrative: Patient presents today complaining of 4-day history of lower abdominal pressure, urgency, frequency, cloudy urine. Denies dysuria, hematuria, fever, back pain. She has not tried any medication for the symptoms prior to arrival. She also complains of a 2-day history of headache, cough, sore throat, chest congestion, shortness of breath. She has tried Tylenol and ibuprofen without relief. She has been vaccinated against COVID-19. MD complaint: Urinary symptoms, URI symptoms Related Data Home Medications Medication Instructions Recorded Confirmed aspirin 81 mg tablet,delayed 81 mg PO DAILY 05/29/19 04/20/21 release simvastatin 20 mg tablet 20 mg PO DAILY 05/29/19 04/20/21 calcium carbonate 600 mg calcium 600 mg PO BID 05/30/19 04/20/21 (1,500 mg) tablet cholecalciferol (vitamin D3) 100 100 mcg PO DAILY 06/17/20 04/20/21 mcg (4,000 unit) capsule hydrochlorothiazide 12.5 mg tablet 12.5 mg PO DAILY 06/17/20 04/20/21 losartan 50 mg tablet 50 mg PO DAILY 06/17/20 04/20/21 multivitamin 1 tablet PO DAILY 06/17/20 04/20/21 cetirizine [Zyrtec] 10 mg PO DAILY 04/20/21 04/20/21 montelukast 10 mg PO DAILY 04/20/21 04/20/21 omeprazole 40 mg PO DAILY 04/20/21 04/20/21 pregabalin 100 mg PO BID 04/20/21 04/20/21 sertraline 150 mg PO DAILY 04/20/21 04/20/21 Allergies Allergy/AdvReac Type Severity Reaction Status Date / Time levofloxacin Allergy Severe Hives Verified 04/20/21 17:07 metronidazole Allergy Severe Hives Verified 04/20/21 17:07 Quinolones Allergy Severe Hives Verified 04/20/21 17:07 oxymetazoline Allergy Unknown Unknown Verified 04/20/21 17:07 Bumble Bee Allergy Unknown THROAT Uncoded 04/20/21 17:07 SWELLS Review of Systems Review of Systems: CONSTITUTIONAL: Denies body aches, fever, chills, or sweats. EYES: Denies visual changes, redness, or discharge. ENT: Denies rhinorrhea, or otalgia.+ Congestion, sore throat CARDIOVASCULAR: Denies chest pain, palpitations, or edema. RESPIRATORY: + Cough, shortness of breath, chest congestion GASTROINTESTINAL: Denies abdominal pain, nausea, vomiting, or diarrhea. GENITOURINARY: Denies dysuria or hematuria.+ Urgency, frequency, lower abdominal pain, cloudy urine SKIN: Denies rash, itching, or wounds. MUSCULOSKELETAL: Denies back pain, joint pain, or myalgia. NEUROLOGIC: Denies numbness, tingling, or weakness.+ Headache PSYCH: Denies depression or anxiety. [facility] Past Medical History Medical History Acute renal failure Allergies Anxiety and depression Benign hypertension COPD exacerbation COPD with asthma CVA (cerebral vascular accident) Fatigue Hyperlipidemia LDL goal <70 Low back pain with right-sided sciatica Lung disease Mixed hyperlipidemia GUILLERMINA on CPAP Papular rash Primary hypertension Pustular rash Tobacco abuse Surgical History Surgical History History of appendectomy History of cholecystectomy History of hernia repair History of lumbar fusion History of spinal fusion History of tubal ligation Family History Family History Mother Family history of malignant neoplasm of breast in first degree relative Family history of sleep apnea Father Hypertension Asthma Family history of cardiovascular disease Family history of chronic obstructive pulmonary disease Family history of sleep apnea Grandparent Family history of cardiovascular disease Family history of Alzheimer's disease Social History Social History Social History
== END 2021-04-20 17:44 | disposition home or self-care (01) ==
PROVIDERS: Emergency Provider Nurse Practitioner; PCP Family Medicine
DX: N30.01 Acute cystitis with hematuria (principal); J06.9 Acute upper respiratory infection, unspecified; F41.9 Anxiety disorder, unspecified; F32.9 Major depressive disorder, single episode, unspecified; I10 Essential (primary) hypertension; J44.9 Chronic obstructive pulmonary disease, unspecified; E78.5 Hyperlipidemia, unspecified; G47.33 Obstructive sleep apnea (adult) (pediatric); Z87.891 Personal history of nicotine dependence; Z86.73 Personal history of transient ischemic attack (TIA), and cerebral infarction without residual deficits
CPT/HCPCS: 81003; 87077; 87086; 87088; 87186; 99213; G0463

== ENCOUNTER 2021-06-15 10:58 | Outpatient (CLI) | payer OTHER, MEDICARE, SELFPAY ==
--- NOTE | ~2021-06-15 | CT_ITS ---
EXAMINATION: CT lung screening DATE: 06/15/2021 11:17 INDICATION: SMOKER SCREENING,ACUTE COUGH X1WK TECHNIQUE: Computed tomography (CT) of the chest was performed without intravenous contrast. Addition al 3D reconstructions utilizing coronal maximum intensity projection (MIP) were performed. Automated exposure control and iterative reconstruction technique were employed. The dose-length product was 28 1.51 mGy-cm. COMPARISON: 02/16/2020 FINDINGS: Again seen are multiple tiny centrilobular groundglass nodules with tree-in-bud pattern scattered thr oughout both lungs with pattern most consistent with respiratory bronchitis interstitial lung disease . No change in a larger 4 mm left upper lobe nodule.No other larger or definitively enlarging pulmona ry nodules identified. No pulmonary edema or pleural effusion. Heart size is normal. Atherosclerotic coronary artery calcification. No pericardial effusion. No pathologically enlarged thoracic lymphaden opathy. Thoracic aorta is normal in caliber. Cholecystectomy clips in the gallbladder fossa. Mild tho racic spondylosis. IMPRESSION: 1. Lung-RADS category 2: Benign appearance or behavior. Continue annual screening with noncontrast lo w-dose chest CT in 12 months. Reviewed, dictated and finalized at location A. [employer]IDENT [employer]ING IMPRESSION: 1. Lung-RADS category 2: Benign appearance or behavior. Continue annual screeni ng with noncontrast low-dose chest CT in 12 months.
== END 2021-06-15 10:59 | disposition home or self-care (01) ==
LOC: ANHIMG 11:01
PROVIDERS: PCP Family Medicine; Visit Provider Physician Assistant
DX: Z72.0 Tobacco use (principal); R05.9 Cough, unspecified
CPT/HCPCS: 71271

== ENCOUNTER 2022-06-16 10:21 | Outpatient (CLI) | payer OTHER, MEDICARE, SELFPAY ==
--- NOTE | ~2022-06-16 | CT_ITS ---
EXAMINATION: CT lung screening DATE: 06/16/2022 10:52 INDICATION: Personal history of nicotine dependence, current smoker with 30 pack year history TECHNIQUE: Computed tomography (CT) of the chest was performed without intravenous contrast. The dose -length product (DLP) was 238.20 mGy-cm. Automated exposure control and iterative reconstruction tech Queralt were employed. COMPARISON: 06/05/2021 FINDINGS: There is mild emphysema. A stable 4 mm nodule is present in the left upper lobe. No pleural effusion or pneumothorax. There is dependent atelectasis. No pathologically enlarged thoracic lymph nodes are identified. The heart size is normal. Calcified coronary artery atherosclerosis is noted. T he gallbladder is surgically absent. There is mild thoracic spondylosis. IMPRESSION: 1. Lung-RADS category 2: Benign appearance or behavior. Continue annual screening with noncontrast lo w-dose chest CT in 12 months. Reviewed, dictated and finalized at location L. PURSE ASSEMBLER IMPRESSION: 1. Lung-RADS category 2: Benign appearance or behavior. Continue annual screeni ng with noncontrast low-dose chest CT in 12 months.
== END 2022-06-16 10:22 | disposition home or self-care (01) ==
LOC: ANHIMG 10:24
PROVIDERS: PCP Family Medicine; Visit Provider Physician Assistant
DX: Z12.2 Encounter for screening for malignant neoplasm of respiratory organs (principal); F17.210 Nicotine dependence, cigarettes, uncomplicated
CPT/HCPCS: 71271

== ENCOUNTER → 2022-08-19 10:51 | Outpatient (CLI) | payer OTHER, MEDICARE, SELFPAY ==
--- NOTE | ~2022-08-19 | MR_ITS ---
MRI of the lumbar spine Clinical History: Back pain, radiculopathy Technique: Axial T2-weighted and T1-weighted images, and sagittal T1-weighted, T2-weighted, and STIR images were acquired. Following intravenous administration of 20 cc MultiHance gadolinium, T1-weighte d fat-sat imaging was performed in the axial and sagittal planes. COMPARISON: 07/09/2020 Findings: There is stable posterior fusion from L3 through L5 with bilateral rods and transpedicular screws present. Stable laminectomy defects of L3 and L4. There is minimal grade 1 anterolisthesis of L2 over L3. No suspicious bone marrow signal abnormality seen. No fracture. At L1-L2, there is no disc bulge or herniation. No spinal canal stenosis or neural foraminal narrowin g. At L2-L3, there is diffuse disc bulge and facet arthropathy, resulting in severe spinal canal stenosi s/thecal sac compression. There is mild right neural foraminal narrowing. Left neural foramen but are preserved. At L3-L4, there is no disc bulge or herniation. No spinal canal stenosis or neural foraminal narrowin g. At L4-L5, there is probable partial fusion across the disc space. No disc bulge or herniation evident . No spinal canal stenosis or definite neural foraminal narrowing. At L5-S1, there is advanced facet arthropathy and minimal disc bulge. No spinal canal stenosis. Proba ble mild bilateral neural foraminal narrowing. Paravertebral soft tissues are unremarkable. No abnormal postcontrast enhancement identified. Impression: Postoperative changes related to posterior fusion from L3 through L5, as noted above, essentially sta ble from prior exam. Grade 1 anterolisthesis of L2 over L3. Multifactorial severe spinal canal stenosis/thecal sac compression at L2-L3. Reviewed, dictated and finalized at [facility]. [employer] Impression: Postoperative changes related to posterior fusion from L3 through L5, as noted above, essentially stable from prior exam. Grade 1 anterolisthesis of L2 over L3. Multifactorial severe spinal canal stenosis/thecal sac compression at L2-L3.
== END ==
PROVIDERS: PCP Family Medicine; Visit Provider Nurse Practitioner Family
DX: M48.061 Spinal stenosis, lumbar region without neurogenic claudication (principal); M54.16 Radiculopathy, lumbar region; Z98.1 Arthrodesis status; M54.50 Low back pain, unspecified
CPT/HCPCS: 72158; A9577

== ENCOUNTER → 2023-03-30 10:33 | Outpatient (CLI) | payer OTHER, SELFPAY ==
--- NOTE | ~2023-03-30 | CT_ITS ---
EXAMINATION: CT lumbar spine wo con DATE: 03/30/2023 10:54 INDICATION: Low back pain. Spinal stenosis. TECHNIQUE: Computed tomography (CT) of the lumbar spine was performed without intravenous contrast. A utomated exposure control and iterative reconstruction technique were employed. The dose-length produ ct was 882.07 mGy-cm. COMPARISON: Lumbar spine MRI 08/19/2022 FINDINGS: Aortic atherosclerosis is noted. There is 8 degrees levocurvature of lumbar spine. There is 3 mm anterolisthesis of L2 on L3. There are changes of posterior fusion procedure from L3 to L5 with pedicle screws. There is moderately decreased disc height at L2-L3 and L3-L4. There is interbody fus ion at L4-L5. There is is moderately decreased disc height at L5-S1. The following disc levels are sp ecifically discussed: L1-L2: The disc is bulging. There is moderate bilateral facet joint osteoarthritis. There is mild lat eral neural foraminal stenosis. There is mild central canal stenosis. L2-L3: The disc is bulging with superimposed central extrusion. There is severe bilateral facet joint osteoarthritis. There is mild bilateral neural foraminal stenosis. There is moderate central canal s tenosis. L3-L4: The disc is bulging. There is moderate bilateral facet joint hypertrophy. There is mild bilate ral neural foraminal stenosis. There is mild central canal stenosis. L4-L5: There is moderate bilateral facet joint hypertrophy. There is moderate bilateral neural forami nal stenosis. There is no central canal stenosis. L5-S1: This is bulging. There is severe bilateral facet joint osteoarthritis. There is mild bilateral neural foraminal stenosis. There is mild central canal stenosis. IMPRESSION: 1. Moderate lumbar spondylosis, stable from 08/19/2022. 2. Posterior fusion procedure from L3 to L5. Reviewed, dictated and finalized at location A.
== END ==
PROVIDERS: PCP Neurological Surgery; Visit Provider Neurological Surgery
DX: M48.00 Spinal stenosis, site unspecified (principal); M47.816 Spondylosis without myelopathy or radiculopathy, lumbar region; Z98.1 Arthrodesis status
CPT/HCPCS: 72131

== ENCOUNTER 2023-06-21 12:48 | Outpatient (CLI) | payer OTHER, SELFPAY ==
--- NOTE | ~2023-06-21 | CT_ITS ---
CT Scan of the Chest without Contrast: Clinical Indication: Lung cancer screening, personal history of nicotine dependence Technique: Contiguous sections were acquired throughout the chest without intravenous contrast. Dose reduction technique was used on this scan by utilizing automated exposure control and iterative recon struction technique. The dose-length product (DLP) was 265.20 mGy-cm. COMPARISON: 06/16/2022 Findings: There is no evidence of any significant mediastinal, hilar or axillary lymphadenopathy. The mediastin al soft tissues appear normal. There is no evidence of pleural or pericardial effusion. There is consolidation at the inferior right upper lobe, with additional focal airspace opacities in the more superior right upper lobe findings most compatible with pneumonia. There is minimal mosaic a ttenuation pattern of the lungs are otherwise. Images through the upper abdomen reveal no abnormalities. Impression: Lung RADS 1S: [address] advised. Right upper lobe consolidation consistent with pneumonia. Consider short-term follow-up CT to assure resolution as indicated. Subtle mosaic attenuation pattern of the lungs. Correlate for pulmonary edema, asthma, bronchitis, hy persensitivity pneumonitis, chronic interstitial disease, or chronic PE. Reviewed, dictated and finalized at location M. ICE TESTER Impression: Lung RADS 1S: [address] advised. Right upper lobe consolidation consistent with pneumonia. Consider short-term f ollow-up CT to assure resolution as indicated. Subtle mosaic attenuation pattern of the lungs. Correlate for pulmonary edema, asthma, bronchitis, hypersensitivity pneumonitis, chronic interstitial disease, or chronic PE.
== END 2023-06-21 12:49 | disposition home or self-care (01) ==
LOC: ANHIMG 12:49
PROVIDERS: PCP Family Medicine; Visit Provider Physician Assistant
DX: Z12.2 Encounter for screening for malignant neoplasm of respiratory organs (principal); R91.8 Other nonspecific abnormal finding of lung field; Z87.891 Personal history of nicotine dependence
CPT/HCPCS: 71271

== ENCOUNTER 2023-06-23 09:33 | Outpatient (CLI) | payer OTHER, SELFPAY ==
[2023-06-23 10:37] LABS: Influenza A QL RT-PCR Negative (Negative); Influenza B QL RT-PCR Negative (Negative); RSV RNA, RT-PCR Negative (Negative); SARS-CoV-2 RNA PCR Negative (Negative)
== END 2023-06-23 09:34 | disposition home or self-care (01) ==
LOC: ANHLAB 09:35
PROVIDERS: PCP Family Medicine; Visit Provider Nurse Practitioner Family
DX: R06.00 Dyspnea, unspecified (principal); Z20.828 Contact with and (suspected) exposure to other viral communicable diseases
CPT/HCPCS: 87637

== ENCOUNTER 2023-07-02 15:51 | Emergency (ER) | payer OTHER, SELFPAY ==
[2023-07-02 16:04] VITALS: BP 127/74; PULSE 72; RESP 16; TEMP 36.3; O2SAT 99
--- NOTE | 2023-07-02 16:14 | ED.GENADULT ---
HPI - General Adult General Chief complaint: Nausea/Vomiting/Diarrhea Stated complaint: Nausea, Dizzy Time Seen by Provider: 07/02/23 16:03 Source: patient, RN notes reviewed and old records reviewed Mode of arrival: ambulatory Limitations: no limitations History of Present Illness HPI narrative: Patient presents today with a 2 day history of nausea, headache, dizziness, generalized weakness, and feeling unsteady on her feet. Denies fever, congestion, rhinorrhea, sore throat, chest pain, numbness or tingling in the extremities, vision changes. Patient does report a cough that, but does have a chronic cough. She does report shortness of breath, but this is at baseline and is no worse than normal. Patient was treated with azithromycin and Augmentin on 06/21/2023 by her packager or packer and weigher for pneumonia. States her symptoms from that time did improve with the antibiotics. Patient states, ?sometimes when I feel this way I have a UTI. Related Data Home Medications Medication Instructions Recorded Confirmed aspirin 81 mg tablet,delayed 81 mg PO DAILY 05/29/19 07/02/23 release (Adult Low Dose Aspirin) calcium carbonate 600 mg calcium 600 mg PO BID 05/30/19 07/02/23 (1,500 mg) tablet (Calcium) cholecalciferol (vitamin D3) 100 100 mcg PO DAILY 06/17/20 07/02/23 mcg (4,000 unit) capsule multivitamin 1 tablet PO DAILY 06/17/20 07/02/23 cetirizine 10 mg tablet (Zyrtec) 10 mg PO DAILY 04/20/21 07/02/23 pregabalin 100 mg capsule 150 mg PO BID 08/18/21 07/02/23 Allergies Allergy/AdvReac Type Severity Reaction Status Date / Time levofloxacin Allergy Severe Hives Verified 07/02/23 15:58 metronidazole Allergy Severe Hives Verified 07/02/23 15:58 Quinolones Allergy Severe Hives Verified 07/02/23 15:58 oxymetazoline Allergy Unknown Unknown Verified 07/02/23 15:58 nitrofurantoin AdvReac Vomiting Verified 07/02/23 15:58 Bumble Bee Allergy Unknown THROAT Uncoded 07/02/23 15:58 SWELLS Review of Systems Review of Systems: CONSTITUTIONAL: Denies body aches, fever, chills, or sweats.+ generalized weakness EYES: Denies visual changes, redness, or discharge. ENT: Denies rhinorrhea, congestion, sore throat, or otalgia. CARDIOVASCULAR: Denies chest pain, palpitations, or edema. RESPIRATORY: + chronic cough and shortness of breath at baseline GASTROINTESTINAL: Denies abdominal pain, vomiting, or diarrhea.+ nausea GENITOURINARY: Denies dysuria or hematuria. SKIN: Denies rash, itching, or wounds. MUSCULOSKELETAL: Denies back pain, joint pain, or myalgia. NEUROLOGIC: Denies numbness, tingling. + headache, dizziness. PSYCH: Denies depression or anxiety. [facility] Past Medical History Medical History Acute renal failure Allergies Anxiety and depression Benign hypertension COPD exacerbation COPD with asthma CVA (cerebral vascular accident) Fatigue Hyperlipidemia LDL goal <70 Low back pain with right-sided sciatica Lung disease Mixed hyperlipidemia GUILLERMINA on CPAP Papular rash Primary hypertension Pustular rash Tobacco abuse Surgical History Surgical History History of appendectomy History of cholecystectomy History of hernia repair History of lumbar fusion History of spinal fusion History of tubal ligation Family History Family History Mother Family history of malignant neoplasm of breast in first degree relative Family history of sleep apnea Father Hypertension Asthma Family history of cardiovascular disease Family history of chronic obstructive pulmonary disease Family history of sleep apnea Grandparent Family history of cardiovascular disease Family history of Alzheimer's disease Social History Social History Smoking packs per day: 0.5 Smoking cigarettes per day: 10.0 Y
== END 2023-07-02 16:40 | disposition short-term general hospital (02) ==
PROVIDERS: Emergency Provider Nurse Practitioner; PCP Family Medicine
DX: R53.1 Weakness (principal); R42 Dizziness and giddiness; Z20.822 Contact with and (suspected) exposure to COVID-19; F17.210 Nicotine dependence, cigarettes, uncomplicated; I10 Essential (primary) hypertension; J44.9 Chronic obstructive pulmonary disease, unspecified; E78.2 Mixed hyperlipidemia; Z86.73 Personal history of transient ischemic attack (TIA), and cerebral infarction without residual deficits; Z79.82 Long term (current) use of aspirin
CPT/HCPCS: 81003; 87086; 87426; 87804; 99213; G0463

== ENCOUNTER 2023-07-02 16:58 | Emergency (ER) | payer OTHER, SELFPAY ==
[2023-07-02] VITALS (8 sets, daily range): BP systolic 109–145; BP diastolic 54–74; PULSE 65–76; RESP 14–16; TEMP 36.7; O2SAT 95–100
--- NOTE | ~2023-07-02 | CT_ITS ---
Non-contrast Head CT History: Dizziness Technique: Axial non-contrast imaging of the brain was performed. Dose reduction technique was used on this scan by utilizing automated exposure control and iterative reconstruction technique. The dose -length product (DLP) was 605.33 mGy-cm. Findings: There is no evidence of intracranial hemorrhage, mass lesion, or acute infarct. Brain par enchyma appears normal. The ventricles and subarachnoid spaces are normal in size. The calvarium ap pears normal. The visualized paranasal sinuses and mastoid air cells are clear. Impression: No significant abnormality seen. Reviewed, dictated and finalized at location . ER PRESS TENDER Impression: No significant abnormality seen.
[2023-07-02 17:27] LABS: Basophils Absolute Auto 0.1 K/mm3 (0.0-0.1); Basophils Percent Auto 0.4 % (0.2-1.2); Eosinophils Absolute Auto 0.1 K/mm3 (0-0.3); Eosinophils Percent Auto 0.4 % (0-4.4); Hematocrit 40.3 % (37.0-47.0); Hemoglobin 12.7 g/dL (12.0-15.0); Immature Granulocyte Absolute 0.05 K/mm3 (0.00-0.031); Immature Granulocyte Percent A 0.3 % (0-0.5); Lymphocytes Absolute Auto 2.77 K/mm3 (0.9-3.2); Lymphocytes Percent Auto 17.1 % (18.3-44.2); Mean Corpuscular HGB Conc 31.5 g/dl (32-36); Mean Corpuscular Hemoglobin 25.9 pg (26-34); Mean Corpuscular Volume 82.2 fl (80-100); Mean Platelet Volume 10.3 fl (7.4-10.4); Monocytes Percent Auto 6.2 % (2.6-8.5); Neutrophils Absolute Auto 12.2 K/mm3 (1.3-6.7); Neutrophils Percent Auto 75.6 % (45.5-73.1); Platelet Count Result 358 k/mm3 (150-375); Red Cell Distribution Width 14.6 % (11.5-14.5); White Blood Count 16.2 K/mm3 (4.5-10.0)
[2023-07-02] MEDS: MECLIZINE HCL 25 MG TABLET PO (17:31)
--- NOTE | 2023-07-02 17:35 | ED.GENADULT ---
HPI - General Adult General Chief complaint: Nausea/Vomiting/Diarrhea Stated complaint: dizzy, nausea, unsteady gait Time Seen by Provider: 07/02/23 17:10 History of Present Illness HPI narrative: 58-year-old female presented to the emergency department for evaluation of some dizziness and lightheadedness. Patient states she was started on antibiotics on 06/22 for a pneumonia by her deicer repairer electric. Patient reports that her shortness of breath has improved but patient is still having some symptoms of lightheaded dizziness that started approximately 2 days ago. Patient reports she has had similar symptoms to this when she has a urinary tract infection, patient denies any urinary symptoms. Patient does report a prior history of a TIA. Related Data Home Medications Medication Instructions Recorded Confirmed aspirin 81 mg tablet,delayed 81 mg PO DAILY 05/29/19 07/02/23 release (Adult Low Dose Aspirin) calcium carbonate 600 mg calcium 600 mg PO BID 05/30/19 07/02/23 (1,500 mg) tablet (Calcium) cholecalciferol (vitamin D3) 100 100 mcg PO DAILY 06/17/20 07/02/23 mcg (4,000 unit) capsule multivitamin 1 tablet PO DAILY 06/17/20 07/02/23 cetirizine 10 mg tablet (Zyrtec) 10 mg PO DAILY 04/20/21 07/02/23 pregabalin 100 mg capsule 150 mg PO BID 08/18/21 07/02/23 Allergies Allergy/AdvReac Type Severity Reaction Status Date / Time levofloxacin Allergy Severe Hives Verified 07/02/23 17:13 metronidazole Allergy Severe Hives Verified 07/02/23 17:13 Quinolones Allergy Severe Hives Verified 07/02/23 17:13 oxymetazoline Allergy Unknown Unknown Verified 07/02/23 17:13 nitrofurantoin AdvReac Vomiting Verified 07/02/23 17:13 Bumble Bee Allergy Unknown THROAT Uncoded 07/02/23 17:13 OLIVA Review of Systems Review of Systems: All systems reviewed & are unremarkable except as noted in HPI and below PMFSH Past Medical History Medical History Acute renal failure Allergies Anxiety and depression Benign hypertension COPD exacerbation COPD with asthma CVA (cerebral vascular accident) Fatigue Hyperlipidemia LDL goal <70 Low back pain with right-sided sciatica Lung disease Mixed hyperlipidemia GUILLERMINA on CPAP Papular rash Primary hypertension Pustular rash Tobacco abuse Surgical History Surgical History History of appendectomy History of cholecystectomy History of hernia repair History of lumbar fusion History of spinal fusion History of tubal ligation Family History Family History Mother Family history of malignant neoplasm of breast in first degree relative Family history of sleep apnea Father Hypertension Asthma Family history of cardiovascular disease Family history of chronic obstructive pulmonary disease Family history of sleep apnea Grandparent Family history of cardiovascular disease Family history of Alzheimer's disease Social History Social History Smoking packs per day: 0.5 Smoking cigarettes per day: 10.0 Years smoked: 30 Smoking pack-years: 15.00 Smoking status: Current every day smoker Tobacco type: cigarettes Second hand tobacco smoke exposure: No Alcohol intake: current Alcohol use details: RARE Substance use: never Substance use type: does not use Lack of Transportation: No Lack of Food: Never True Current Housing: Decline to Answer Concerned About Future Housing: Decline to Answer Difficulty Paying Gas/Electric Bills: Decline to Answer Difficulty Paying for Meds: Decline to Answer Currently Unemployed: Decline to Answer Education: Decline to Answer Difficulty w/ Childcare or Family Care: Decline to Answer Living arrangements: with family Gender identity (if verbalized by the patient): Female Sexual Orientation
[2023-07-02 17:44] LABS: Alanine Aminotransferase 21 U/L (6-35); Albumin Level 4.5 g/dL (3.5-5.1); Alkaline Phosphatase 136 U/L (38-126); Anion Gap 10 mmol/L (8-16); Aspartate Amino Transferase 22 U/L (14-36); Bilirubin,Total 0.7 mg/dL (0.2-1.3); Blood Urea Nitrogen 15 mg/dL (7-17); Calcium 9.7 mg/dL (8.4-10.2); Carbon Dioxide 24 mmol/L (22-30); Chloride 103 mmol/L (98-107); Estimated CRCL calculation 66 ml/min; Estimated Glomerular Filt Rate > 60; Glucose 94 mg/dL (65-110); Lipase 128 U/L (23-300); Sodium 137 mmol/L (137-145)
[2023-07-02 18:38] LABS: Appearance Urine Clear (Clear); Bacteria Urine None Seen /hpf; Bilirubin Urine Negative (Negative); Color Urine Yellow (Yellow); Glucose Urine UA Negative (Negative); Ketones Urine Negative (Negative); Leukocyte Esterase Ur Negative LEU/UL (Negative); Nitrate Urine Negative (Negative); Non Pathogenic Casts 0-2; Protein Urine Negative (Negative); Specific Grav Ur 1.008 (1.001-1.035); Squamous Epithelial Cell Urine None seen /hpf (Few); Urobilinogen Urine 0.2 mg/dL (<2.0); WBC Urine 0-5 /hpf
[2023-07-02 18:40] LABS: Add Urine Microscopic? YES
[2023-07-02 20:47] LABS: Influenza A QL RT-PCR Negative (Negative); Influenza B QL RT-PCR Negative (Negative); RSV RNA, RT-PCR Negative (Negative); SARS-CoV-2 RNA PCR Negative (Negative)
== END 2023-07-02 18:45 | disposition home or self-care (01) ==
PROVIDERS: Emergency Provider Emergency Medicine; PCP Family Medicine
DX: R42 Dizziness and giddiness (principal); Z20.822 Contact with and (suspected) exposure to COVID-19; I10 Essential (primary) hypertension; J44.9 Chronic obstructive pulmonary disease, unspecified; E78.2 Mixed hyperlipidemia; G47.33 Obstructive sleep apnea (adult) (pediatric); F17.210 Nicotine dependence, cigarettes, uncomplicated; Z98.1 Arthrodesis status; Z86.73 Personal history of transient ischemic attack (TIA), and cerebral infarction without residual deficits; Z90.49 Acquired absence of other specified parts of digestive tract
CPT/HCPCS: 36415; 70450; 80053; 81001; 81003; 83690; 85025; 87086; 87426; 87637; 87804; 99284; A9270

== ENCOUNTER 2023-07-20 12:52 | Outpatient (CLI) | payer OTHER, SELFPAY ==
--- NOTE | ~2023-07-20 | CT_ITS ---
CT Scan of the Chest without Contrast: Clinical Indication: Pneumonia Technique: Contiguous sections were acquired throughout the chest without intravenous contrast. Dose reduction technique was used on this scan by utilizing automated exposure control and iterative recon struction technique. The dose-length product (DLP) was 508.47 mGy-cm. COMPARISON: 06/21/2023 Findings: Mildly prominent mediastinal lymph nodes are stable from prior exam. Coronary artery calcification ar e present. No aortic aneurysm. There is no evidence of pleural or pericardial effusion. Suggestion of minimal mosaic attenuation pattern of the lungs. No suspicious pulmonary nodule evident . Images through the upper abdomen reveal no abnormalities. Impression: Previously noted right upper lobe consolidation is resolved. Possible minimal mosaic attenuation pattern of the lungs. Correlate for hypoventilatory change, minim al pulmonary edema, atypical infection, hypersensitivity pneumonitis, bronchiolitis, or asthma. Reviewed, dictated and finalized at [facility]. TS PHYSICAL THERAPIST Impression: Previously noted right upper lobe consolidation is resolved. Possible minimal mosaic attenuation pattern of the lungs. Correlate for hypoven tilatory change, minimal pulmonary edema, atypical infection, hypersensitivity pneumonitis, bronchiolitis, or asthma.
== END 2023-07-20 12:53 | disposition home or self-care (01) ==
PROVIDERS: PCP Family Medicine; Visit Provider Nurse Practitioner Family
DX: R91.8 Other nonspecific abnormal finding of lung field (principal); J18.9 Pneumonia, unspecified organism
CPT/HCPCS: 71250

== ENCOUNTER 2024-08-10 09:13 | Outpatient (CLI) | payer OTHER, SELFPAY ==
--- NOTE | ~2024-08-10 | CT_ITS ---
EXAMINATION: CT lung screening DATE: 08/10/2024 09:42 INDICATION: Z87.891 - Personal history of nicotine dependence TECHNIQUE: Computed tomography (CT) of the chest was performed without intravenous contrast. Addition al 3D reconstructions utilizing coronal maximum intensity projection (MIP) were performed. Automated exposure control and iterative reconstruction technique were employed. The dose-length product was 14 6.39 mGy-cm. COMPARISON: 07/20/2023 FINDINGS: 5 mm and 3 mm nodules at the lingula. 2 mm nodule in the superior segment of the right lower lobe miracle ng the fissure. 3 mm nodule in the posterior segment of the right upper lobe. These are all unchanged since the prior study. Mild atelectasis at the anteromedial aspect of the right middle lobe and ling lucero. No pneumonia, pulmonary edema or pleural effusion. Heart size normal. Atherosclerotic coronary a rtery calcific location. Thoracic aorta is normal in caliber. No pathologically enlarged thoracic lym phadenopathy. Mild thoracic levocurvature with mild spondylosis. IMPRESSION: 1. Lung-RADS category 2: Benign appearance or behavior. Continue annual screening with noncontrast lo w-dose chest CT in 12 months. Reviewed, dictated and finalized at location A. CORRECTIONS IMPRESSION: 1. Lung-RADS category 2: Benign appearance or behavior. Continue annual screeni ng with noncontrast low-dose chest CT in 12 months.
--- OUTSIDE RECORDS SUMMARY | 2024-08-10 09:18 | XMS_ITS | Patient Health Summary ---
Author Organization [facility] Address [address] [place] [address] Care Team Providers Care Optical Glass Etcher Name Role Phone Shefali Aden MD Primary Care Provider [phone] Note from [facility],non-owned Affiliates and Associated Physician Practices is amultiple site organization consisting of ambulatory clinics and hospital sitesin [place], [place], [place] and [place]. This disclosure is being madepursuant to the Care Everywhere program and may not contain all information available regarding this patient. Last updated 18.[facility] Allergies * Quinolones(Urticaria,Nausea and/or Vomiting,Other) -Medium Criticality Social History Tobacco Use Types Packs/Day Years Used Date Smoking Tobacco: Never Assessed Sex and Gender Information Value Date Recorded Sex Assigned at Not on file Gender Identity Not on file Sexual Orientation Not on file Last Filed Vital Signs Vital Sign Reading Time Taken Comments Blood Pressure 160/88 03/06/2023 1:01 PM CDT Pulse 73 03/06/2023 1:01 PM CDT Temperature 36.5 C (97.7 F) 03/06/2023 1:01 PM CDT Respiratory Rate - - Oxygen Saturation 95% 03/06/2023 1:01 PM CDT Inhaled Oxygen Concentration - - Weight - - Height - - Body Mass Index - - Procedures * IMAGING/RADIOLOGY/XRAY RESULTS ORDER(Performed 03/30/2023) * EEG VIDEO MONITORING(Performed 04/30/2012) Results * IMAGING RADIOLOGY XRAY RESULTS ORDER (03/30/2023) Anatomical Region Laterality Modality Other 03/30/2023 Narrative 03/30/2023 Ordered by an unspecified provider. Scanned Document IMAGING * EEG VIDEO MONITORING (04/30/2012) Vijay Oates MD NEUROLOGY ORDERABLES Care Teams Optical Glass Etcher Relationship Specialty Start Date End Date Shefali Aden MD [address] [place] [address] PCP - General 09/08/22
--- OUTSIDE RECORDS SUMMARY | 2024-08-10 09:18 | XMS_ITS | Referral Summary ---
Author Organization [facility] Address [address] [place] [place] [address] Care Team Providers Care Director Corporate Name Role Phone Shefali Aden MD Primary Care Provider [phone] Source Comments [facility],non-owned Affiliates and Associated Physician Practices is amultiple site organization consisting of ambulatory clinics and hospital sitesin [place], [place] and [place]. This disclosure is being madepursuant to the Care Everywhere program and may not contain all information available regarding this patient. Last updated 18.[facility] Allergies Active Allergy Reactions Criticality Noted Date Comments Quinolones Urticaria,Nausea and /or Vomiting,Other Medium 12/27/2021 Reaction: Hives, , , Reaction: hives, , Social History Tobacco Use Types Packs/Day Years [...] - - Body Mass Index - - Plan of Treatment Not on file Care Teams Director Corporate Relationship Specialty Start Date End Date Shefali Aden MD [address] [place], [place] [id number] PCP - General 09/08/22
--- OUTSIDE RECORDS SUMMARY | 2024-08-10 09:19 | XMS_ITS | Encounter Summary ---
Author Organization [facility] Address [address] [place] [address] Phone Care Team Providers Care Waiter And Cashier Name Role Phone Jenny Negron MD Primary Care Provider [phone] Reason for Visit * Reason Comments Med Refill Encounter Details Date Type Department Care Team (Late st Contact Info) Description 09/26/2021 Refill [facility] [address], [address] [place] [id number] Remigio Hubbard MD [address] [facility] [place] [address] Social History Tobacco Use Types Packs/Day Years Used Date Smoking Tobacco: Former Smokeless Tobacco: Never Alcohol Use Standard Drinks/Week Comments Not Currently 0 (1 standard drink = 0.6 oz pur e alcohol) Sex and Gender Information Value Date Recorded Sex Assigned at Not on file Gender Identity Not on file Sexual Orientation Not on file documented as of this encounter Plan of Treatment Not on file documented as of this encounter Visit Diagnoses Not on filedocumented in this encounter Care Teams Waiter And Cashier Relationship Specialty Start Date End Date Jenny Negron MD [address] [facility] [address] [facility] [address] [place] [address] PCP - General Internal Medicine 12/04/19 documented as of this encounter
--- OUTSIDE RECORDS SUMMARY | 2024-08-10 09:19 | XMS_ITS | Clinical Summary ---
Author Organization [facility] Address [address] [place] [address] Phone Care Team Providers Care Ends Down Checker Name Role Phone Jenny Negron MD Primary Care Provider [phone] Allergies Active Allergy Reactions Criticality Noted Date Comments Metronidazole And Related Unknown Quinolones Nausea Only Medium Medications Medication Sig Dispensed Refills Start Date End Date Status HYDROcodone-acetami nophen (LORCET PLUS) 10-325 MG per tablet prn trying to transition to this 0 11/04/2015 Active ALPRAZolam (XANAX) 0.5 MG tablet as needed 0 05/18/2016 Active Polyethyl Glycol-Propyl Glycol (SYSTANE) 0.4-0.3 % solution prn 08/27/2015 Active buPROPion XL (WELLBUTRIN XL) 150 MG 24 hr tablet 1 daily 08/27/2015 Active albuterol HFA (VENTOLIN HFA) 108 (90 Base) MCG/ACT inhaler 2 puffs bid scheduled 0 05/03/2017 Active diazePAM (VALIUM) 5 MG tablet 1q6 prn 08/27/2015 Active omeprazole (PriLOSEC) [address] capsule 1 bid 02/10/2012 Active travoprost (TRAVATAN Z) 0.004 % solution OPHTHalmic solution ou daily 08/27/2015 Activ e fluticasone-vilante rol (BREO ELLIPTA) 100-25 MCG/INH inhaler 1puff once a day 0 05/03/2017 Active aspirin (ASPIR-LOW) 81 MG EC tablet 1 daily 08/27/2015 Active sertraline (ZOLOFT) 100 MG tablet 1.5 tabs daily 12/18/2013 Active docusate sodium (COLACE) 100 MG capsule 1 ibid 02/13/2012 Active cholecalciferol (VITAMIN D-3) 2000 units capsule 2 daily 10/08/2014 Active Calcium-Vitamin D 600-200 MG-UNIT per tablet bid 10/08/2014 Active loratadine (CLARITIN) 10 MG tablet 1 dialy 08/27/2015 Active cloNIDine (CATAPRES) 0.1 MG tablet TAKE 1 TABLET NEEDED FOR BLOOD PRESSURE OVER 150. 6 07/05/2015 Active traMADol (ULTRAM) 50 MG tablet 1 tablet (50 mg) orally every 6 hours as needed 0 11/02/2016 Active montelukast (SINGULAIR) 10 MG tablet Take 10 mg by mouth 1 (one) time each day 11/08/2019 Active simvastatin (ZOCOR) 20 MG tablet TAKE 1 TABLET DAILY 90 tablet 4 12/23/2019 Active losartan (COZAAR) 50 MG tablet TAKE 1 TABLET BY MOUTH EVERY DAY 30 tablet 11 04/14/2020 Active hydroCHLOROthiazide (HYDRODIURIL) 12.5 MG tablet TAKE 1 TABLET BY MOUTH EVERY DAY 90 tablet 3 08/11/2020 Active Active Problems Problem Noted Date Diagnosed Date Abnormal result of liver function study 10/09/19 15 Hyperlipidemia 04/09/2014 Overview (09/01/2018): Converted unresolved ICD9, potential mismatch. Essential (primary) hypertension 12/29/2011 Gastroesophageal reflux disease 01/29/2009 Immunizations Name Administration Dates Next Due Pneumococcal Conjugate 02/18/2016 Family History Medical History Relation Comments Kidney disease Neg Hx Kidney stone Neg Hx Social History Tobacco Use Types Packs/Day Years [...] Sign Reading Time Taken Comments Blood Pressure 124/74 12/04/2019 8:58 AM CDT Pulse 72 12/04/2019 8:58 AM CDT Temperature 35.9 C (96.7 F) 12/04/2019 8:58 AM CDT Respiratory Rate - - Oxygen Saturation - - Inhaled Oxygen Concentration - - Weight 94.8 kg (209 lb) 12/04/2019 8:58 AM CDT Height 160 cm (5' 3 ) 12/04/2019 8:58 AM CDT Body Mass Index 37.02 12/04/2019 8:58 AM CDT Plan of Treatment Health Maintenance Due Date Last Done Comments Influenza Vaccine (#1) 2024 Care Teams Ends Down Checker Relationship Specialty Start Date End Date Jenny Negron MD [address] [facility] [address] [place] [address] PCP - General Internal Medicine 12/04/19
--- OUTSIDE RECORDS SUMMARY | 2024-08-10 09:19 | XMS_ITS | Clinical Summary ---
Author Organization [facility] Address [address] [place] [address] Care Team Providers Care Hospice Volunteer Coordinator Name Role Phone None, Provider Primary Care Provider Unavaila ble Allergies Active Allergy Reactions Criticality Noted Date Comments Oxymetazoline Hives 12/27/2021 Levofloxacin Hives 12/27/2021 Medications omeprazole 20 MG capsule 40 MG (2 X 20 MG) BY MOUTH DAILY TAKE 1 CAPSULE BY MOUTH TWICE A DAY 08/11/2021 Active sertraline 100 MG tablet Take 150 mg by mouth daily. 11/06/2021 Active buPROPion XL 150 MG 24 hr tablet Take 150 mg by mouth every morning. 05/28/2021 Active pregabalin 150 MG capsule 12/21/2021 Active simvastatin 20 MG tablet Take 20 mg by mouth daily. 11/08/2021 Active montelukast 10 MG tablet Take 10 mg by mouth daily. 10/04/2021 Active SYMBICORT 80-4.5 MCG/ACT inhaler Inhale 2 puffs into the lungs 2 (two) times daily. 06/06/2021 Active hydroCHLOROthia zide 12.5 MG tablet Take 12.5 mg by mouth daily. 10/13/2021 Active cyclobenzaprine 10 MG tablet Take 1 tablet (10 mg total) by mouth 3 (three) times daily as needed for Muscle Spasms. 15 tablet 12/27/2021 Active Social History Tobacco Use Types Packs/Day Years Used Date Smoking Tobacco: Every Day Cigarettes 2 20 Tobacco Cessation:Ready to Q uit: No; Counseling Given: No Comments Unknown Sex and Gender Information Value Date Recorded Sex Assigned at Not on file Legal Sex Female 5:16 PM CDT Gender Identity Not on file Sexual Orientation Not on file Last Filed Vital Signs Vital Sign Reading Time Taken Comments Blood Pressure 140/66 12/27/2021 4:36 PM CDT Pulse 76 12/27/2021 4:36 PM CDT Temperature 37.1 C (98.7 F) 12/27/2021 4:36 PM CDT Respiratory Rate 20 12/27/2021 4:36 PM CDT Oxygen Saturation 97% 12/27/2021 4:36 PM CDT Inhaled Oxygen Concentration - - Weight 104.3 kg (230 lb) 12/27/2021 3:00 PM CDT Height 160 cm (5' 3 ) 12/27/2021 3:00 PM CDT Body Mass Index 40.74 12/27/2021 3:00 PM CDT Plan of Treatment Health Maintenance Due Date Last Done Comments Colorectal Cancer Screening Colonoscopy (10 Years) 1963 Annual Physical 1966 Hepatitis C 1981 Mammogram Screening 2003 Zoster Vaccines (1 of 2) 2013 Pneumococcal Vaccine: Pediatrics (0 to 5 Years) and At-Risk Patients (6 to 64 Years) (2 of 2 - PCV) 04/18/2017 04/18/2016, 02/18/2016 Cervical Cancer Screening Pap Smear (Age 30 to 64) Every 3 Years 03/27/2020 03/27/2017 Cervical Cancer Screening Pap with HPV Testing (Age 30 to 64) Every 5 Years 03/27/2022 03/27/2017 Cervical Cancer Screening with HPV 03/27/2022 RSV Immunization or 60+ Years (1 - Risk 60-74 years 1-dose series) 2023 COVID-19 Vaccine ( season) 2024 05/06/2021, 09/14/2020, 08/24/2020 Influenza Adult (#1) 2024 05/06/2021, 05/28/2020, 04/08/2019, Additional history exists DTaP, Tdap and Td Vaccines (3 - Td or Tdap) 08/25/2030 08/25/2020, 05/21/2015 Meningococcal B Vaccine Aged Out No l onger eligible based on patient's age to complete this topic Meningococcal Vaccine Aged Out No kiel irving eligible based on patient's age to complete this topic RSV Immunizations Under 20 Months Aged Out No longer eligible based on patient's age to complete this topic Insurance MEDICARE [facility] Care Teams Hospice Volunteer Coordinator Relationship Specialty Start Date End Date None, Provider, PCP - General 12/27/21
--- OUTSIDE RECORDS SUMMARY | 2024-08-10 09:19 | XMS_ITS | Referral Summary ---
[facility] Organization [facility] Address [address] [address] Care Team Providers Care Electrologist Name Role Phone Santiago Granados MD Primary Care Provider [phone] Allergies Active Allergy Reactions Criticality Noted Date Comments Levofloxacin Other (See comments) Reaction: Hives, , , Metronidazole Other (See comments) Reaction: Hives, , , , Quinolones Other (See comments) Reaction: hives, , Medications buPROPion (WELLBUTRIN) 75 mg tablet take 2 Tablet by oral route 2 times every day 0 0 6 Active Additional Information Patient taking differently: 150 mg Daily, Reported on 05/19/2021 cholecalciferol (VITAMIN D3) 4,000 unit capsule 1 0 6 Active losartan-hydroC HLOROthiazide (HYZAAR) 50-12.5 mg per tablet take 1 Tablet by oral route every day 0 0 6 Active sertraline (ZOLOFT) 100 mg tablet take 1 1/2 tablet by oral route every day 0 2 Active Additional Information Patient taking differently: 150 mg, Reported on 05/19/2021 aspirin 81 mg tablet take 1 tablet (81MG) by oral route every day 0 2 Active omeprazole (PriLOSEC) 20 mg capsule take 1 Capsule (20MG) by oral route 2 times every day before a meal 0 2 Active docusate sodium (COLACE) 100 mg capsule take 1 capsule (100MG) by oral route every day at bedtime as needed 0 01/29/201 3 Active simvastatin (ZOCOR) 20 mg tablet take 1 tablet by oral route every day in the evening 0 0 4 Active calcium carbonate (CALCIUM 500) 1,250 MG (500 mg of elemental calcium) tablet 0 0 5 Active multivitamin capsule Take 1 capsule by mouth daily Active pregabalin (LYRICA) 100 mg capsule Take 100 mg by mouth 2 (two) times a day Active cetirizine (ZyrTEC) 10 mg tablet Take 10 mg by mouth daily Active montelukast (SINGULAIR) 10 mg tablet Take 10 mg by mouth nightly Active budesonide-form oteroL (SYMBICORT) 80-4.5 mcg/actuation inhaler Inhale 2 puffs 2 (two) times a day Rinse mouth with water after use. Do not swallow. Active albuterol HFA (PROVENTIL HFA,VENTOLIN HFA,PROAIR HFA) 90 mcg/actuation inhaler Inhale 2 puffs every 6 (six) hours as needed for wheezing Active Active Problems Problem Noted Date Diagnosed Date Bilateral stenosis of lateral recess of lumbar s pine 05/19/2021 Assessment & Plan (05/19/2021 3:58 PM LABVIEW PROGRAMMER): Ms. Llanos has adjacent level stenosis at L2-3 after prior lumbar decompression and fusion from L3-[address] Garduno in 2016. She has symptoms of lumbar radiculopathy and neurogenic claudication. She currently smokes 1 pack per day and her BMI is 40.42. We discussed that she would need to stop smoking for a month before surgery and 3 months after surgery and would need to get down to a BMI 35 in order to be a surgical candidate. She and her voiced understanding. We will set up a follow-up appointment in 4 months to rediscuss option and she will work on smoking cessation and weight loss. Impairment of balance 05/29/2014 Overview (09/22/2016): Impairment of balance Encephalopathy 09/30/2013 Intracranial swelling 09/30/2013 Gastroesophageal reflux disease 01/29/2009 Social History Tobacco Use Types Packs/Day Years Used Date Smoking Tobacco: Every Day Cigarettes Smokeless Tobacco: Never Alcohol Use Standard Drinks/Week Comments Yes 0 (1 standard drink = 0.6 oz pur e alcohol) AUDIT-C Answer Date Recorded Q1: How often do you have a drink containing alc ohol? Monthly or less 05/19/2021 Q2: How many drinks containi ng alcohol do you have on a typical day when you are drinking? 1 or 2 05/19/2021 Q3: How often do you have si x or more drinks on one occasion? Never 05/19/2021 PHQ-2 Answer Date Recorded PHQ-2 Total Score (If total score is 3 or more points, staff should administer the PHQ-9) 4 05/19/2021 Comments Unknown Sex and Gender Information Value Date Recorded Sex Assigned at Not on file Legal Sex Female 2:01 AM LABVIEW PROGRAMMER Gender Identity Not on file Sexual Orientation Not on file Occupation Industry Job Start Date Job End Date Disabled Not on file Not on file Not on file Last Filed Vital Signs Vital Sign Reading Time Taken Comments Blood Pressure 102/60 05/17/2016 3:27 PM LABVIEW PROGRAMMER Pulse 80 05/17/2016 3:26 PM LABVIEW PROGRAMMER Temperature - - Respiratory Rate - - Oxygen Saturation - - Inhaled Oxygen Concentration - - Weight 100.2 kg (221 lb) 05/19/2021 1:57 PM LABVIEW PROGRAMMER Height 157.5 cm (5' 2 ) 05/19/2021 1:57 PM LABVIEW PROGRAMMER Body Mass Index 40.42 05/19/2021 1:57 PM LABVIEW PROGRAMMER Plan of Treatment Not on file Insurance [facility] CHOICE PLUS MEDICARE Care Teams Electrologist Relationship Specialty Start Date End Date Santiago Granados MD [address] [place], [place] [id number] PCP - General 05/17/16
--- OUTSIDE RECORDS SUMMARY | 2024-08-10 09:19 | XMS_ITS | Encounter Summary ---
Author Organization [facility] Health Address [address] [place] [address] Care Team Providers Care Networking Engineer Name Role Phone Santiago Granados MD Primary Care Provider [phone] Shefali Aden MD Primary Care Provider [phone] Encounter Details Date Type Department Care Team (Late st Contact Info) Description 04/30/2012 [facility] Outpatient Visit [facility] [address] [place] [address] [place] [address] [place] [id number] Social History Tobacco Use Types Packs/Day Years Used Date Smoking Tobacco: Never Assessed Sex and Gender Information Value Date Recorded Sex Assigned at Not on file Gender Identity Not on file Sexual Orientation Not on file documented as of this encounter Plan of Treatment Not on file documented as of this encounter Visit Diagnoses Not on filedocumented in this encounter Care Teams Networking Engineer Relationship Specialty Start Date End Date Santiago Granados MD [address] [place] [address] PCP - General Family Medicine 03/13/12 09/07/22 Shefali Aden MD [address] [place] [address] PCP - General 09/08/22 documented as of this encounter
--- OUTSIDE RECORDS SUMMARY | 2024-08-10 09:19 | XMS_ITS | Clinical Summary ---
[facility] Organization [facility] Address [address] [place] [address] Care Team Providers Care Truck Striker Name Role Phone Santiago Granados MD Primary Care Provider [phone] Allergies Active Allergy Reactions Criticality Noted Date [...] 05/19/2021 Assessment & Plan (05/19/2021 3:58 PM DIRECTOR MEDICAL SCIENCE): Ms. Llanos has adjacent level stenosis at [...] Intracranial swelling 09/30/2013 Gastroesophageal reflux disease 01/29/2009 Surgical History Surgery Date Site/Laterality Comments CHOLECYSTECTOMY cholecystecomy APPENDECTOMY Appendectomy HERNIA REPAIR herniorrhaphy TUBAL LIGATION Bilateral tubal ligation OTHER SURGICAL HISTORY chronic low back pain OTHER SURGICAL HISTORY L spine surgery LUMBAR FUSION 06/19/2008 - 06/18/2009 L4-5 [facility] LUMBAR FUSION 06/19/2015 - 06/18/2016 L3-4 PSF [facility] SECTION TUBAL LIGATION WRIST SURGERY Left Medical History Medical History Date Comments Depression Depression Hypertension Hypertension Tension headache Headache, tensi on Hx Other Medical 03/2016 ARDS and SIRS Hx Other Medical 07/2015 Lumbar decompre ssion and fusion. Postoperative co TIA (transient ischemic attack) Sleep apnea CAD (coronary artery disease) Hypercholesteremia GERD (gastroesophageal reflux disease) Asthma COPD (chronic obstructive pu lmonary disease) (HCC) Pneumonia Chronic kidney disease 2012 Family History Medical History Relation Name Comments Hypertension Father Cancer Mother Relation Name Status Comments Father Mother Social History Tobacco Use Types Packs/Day Years [...] on file Legal Sex Female 2:01 AM DIRECTOR MEDICAL SCIENCE Gender Identity Not on file Sexual Orientation Not on file Occupation Industry Job Start Date Job End Date Disabled Not on file Not on file Not on file Obstetrics History Last Filed Vital Signs Vital Sign Reading Time Taken Comments Blood Pressure 102/60 05/17/2016 3:27 PM DIRECTOR MEDICAL SCIENCE Pulse 80 05/17/2016 3:26 PM DIRECTOR MEDICAL SCIENCE Temperature - - Respiratory Rate - - Oxygen Saturation - - Inhaled Oxygen Concentration - - Weight 100.2 kg (221 lb) 05/19/2021 1:57 PM DIRECTOR MEDICAL SCIENCE Height 157.5 cm (5' 2 ) 05/19/2021 1:57 PM DIRECTOR MEDICAL SCIENCE Body Mass Index 40.42 05/19/2021 1:57 PM DIRECTOR MEDICAL SCIENCE Plan of Treatment Not on file Insurance [facility] [address] [address] [facility] CHOICE PLUS MEDICARE Care Teams Truck Striker Relationship Specialty Start Date End Date Santiago Granados MD [address] [place] [address] PCP - General 05/17/16
--- OUTSIDE RECORDS SUMMARY | 2024-08-10 09:19 | XMS_ITS | Clinical Summary ---
Author Organization [facility] Address [address] [place] [address] Care Team Providers Care Deputy Program Manager Name Role Phone Shefali Aden MD Primary Care Provider [phone] Source Comments [facility],non-owned Affiliates and Associated Physician Practices is amultiple site organization consisting of ambulatory clinics and hospital sitesin [place], [place], [place] and [place]. This disclosure is being madepursuant to the Care Everywhere program and may not contain all information available regarding this patient. Last updated 18.[facility] Allergies Active Allergy Reactions Criticality Noted Date [...] Mass Index - - Plan of Treatment Health Maintenance Due Date Last Done Comments COLOGUARD (AGES 45-75) - COL ON CA SCREENING 1963 COLON MONITORING 1963 COLONOSCOPY - COLON CA SCREENING 1963 CT COLONOGRAPHY - COLON CA SCREENING 1963 Colorectal Cancer Screening 1963 FIT - COLON CA SCREENING 1963 FLEX SIG - COLON CA SCREENING 1963 LIPID TESTING 1963 MAMMOGRAM 1963 HIV SCREENING 1978 HEPATITIS C SCREENING 06/19/1981 DTAP/TDAP/TD VACCINES (1 - Tdap) 1982 PNEUMOCOCCAL VACCINE 50+ (1 of 1 - PCV) 2013 ZOSTER VACCINE (1 of 2) 2013 PAP SMEAR 03/27/2020 03/27/2017 COVID-19 VACCINE (1 - 2023-2 5 season) 2024 INFLUENZA VACCINE (#1) 2024 DEPRESSION SCREENING 06/19/2024 MEDICARE AWV CALENDAR YEAR 2024 Respiratory Syncytial Virus (RSV) Vaccine Pt: or over 60 yrs (1 - 1-dose 75+ series) 2038 HEPATITIS B VACCINE Aged Out No longe r eligible based on patient's age to complete this topic HIB VACCINE Aged Out No longer eligi ble based on patient's age to complete this topic HPV VACCINE Aged Out No longer eligi ble based on patient's age to complete this topic MENINGOCOCCAL (Group B) VACCINE Aged Out No longer eligible based on patient's age to complete this topic MENINGOCOCCAL VACCINE Aged Out No kiel irving eligible based on patient's age to complete this topic PNEUMOCOCCAL VACCINE Aged Out No long er eligible based on patient's age to complete this topic Care Teams Deputy Program Manager Relationship Specialty Start Date End Date Shefali Aden MD [address] [place] [address] PCP - General 09/08/22
--- OUTSIDE RECORDS SUMMARY | 2024-08-10 09:19 | XMS_ITS | Encounter Summary ---
Author Organization [facility] Address [address] [place] [address] Phone Care Team Providers Care Oliver Filter Operator Name Role Phone Jenny Negron MD Primary Care Provider [phone] Reason for Visit * Reason Comments Med Refill Encounter Details Date Type Department Care Team (Late st Contact Info) Description 04/24/2021 Refill [facility] Nephrology and Hypertension [facility] [facility], [address] [place] [id number] Remigio Hubbard MD [address] [facility] [facility] [place] [address] Social History Tobacco Use Types Packs/Day Years Used Date Smoking Tobacco: Former Smokeless Tobacco: Never Alcohol Use Standard Drinks/Week Comments Not Currently 0 (1 standard drink = 0.6 oz pur e alcohol) Sex and Gender Information Value Date Recorded Sex Assigned at Not on file Gender Identity Not on file Sexual Orientation Not on file documented as of this encounter Miscellaneous Notes * Telephone Encounter - Bryant Lara MA - 05/04/2021 2:42 PM CST Pt called for appt. Has not been seen since November 2019 since she was a no show in November 2020. Made appt for 07/19/21 in [place]. Pt then requested refill of of her [place]. Called pt and instructed her to call primary care physto refill her med since not seen in 18 months * Telephone Encounter - Remigio Hubbard MD - 04/26/2021 4:35 PM CST Have pt make appt next available documented in this encounter Plan of Treatment Not on file documented as of this encounter Visit Diagnoses Not on filedocumented in this encounter Care Teams Oliver Filter Operator Relationship Specialty Start Date End Date Jenny Negron MD [address] [facility] [address] [facility] [address] [place] [address] PCP - General Internal Medicine 12/04/19 documented as of this encounter
== END 2024-08-10 09:14 | disposition home or self-care (01) ==
PROVIDERS: PCP Family Medicine; Visit Provider Physician Assistant
DX: Z12.2 Encounter for screening for malignant neoplasm of respiratory organs (principal); Z87.891 Personal history of nicotine dependence
CPT/HCPCS: 71271